=== PATIENT | male | born 1960 | race Caucasian/White ===

== ENCOUNTER 2018-10-13 18:34 | Inpatient (IN) | payer OTHER ==
[2018-10-13 22:36] VITALS: BMI 22.5
--- NOTE | 2018-10-14 00:08 | HP ---
CIWA Score Nausea/Vomitin-No Nausea/No Vomiting Muscle Tremors: 4-Moderate,w/Arms Extend Anxiety: 3 Agitation: 3 Paroxysmal Sweats: 3 (Increased facial moisture) Orientation: 0-Oriented Tacttile Disturbances: 0-None Auditory Disturbances: 0-None Visual Disturbances: 0-None Headache: 0-None Present CIWA-Ar Total Score: 13 - Admission Criteria OASAS Guidelines: Admission for Medically Managed Detox: Requires at least one of the followin. CIWA greater than 12 2. Seizures within the past 24 hours 3. Delirium tremens within the past 24 hours 4. Hallucinations within the past 24 hours 5. Acute intervention needed for co occurring medical disorder 6. Acute intervention needed for co occurring psychiatric disorder 7. Severe withdrawal that cannot be handled at a lower level of care (continued vomiting, continued diarrhea, abnormal vital signs) requiring intravenous medication and/or fluids 8. Patient presents the following: CIWA greater than 12 Admission Criteria Met: Admission criteria met Admission ROS [facility] - [facility] Chief Complaint: Having withdrawal symptoms. Allergies/Adverse Reactions: Allergies Allergy/AdvReac Type Severity Reaction Status Date / Time No Known Allergies Allergy Verified 10/13/18 22:21 History of Present Illness: 58 yo presents w/ alcohol withdrawal symptoms for detox. Has co-occurring opiates, cocaine and Bzo use disorder. Alcohol use began at age 15. State alcohol use is usually every other day but has been binging this last week. Cocaine use began at age 17. Started using Crack daily @ age 30. . Heroin use began at age 50. (Was using Lorelei's before starting heroin). On [facility] MMTP x 3 years. Current Methadone dose is 120 mg PO daily. Last medicated today. Continues to use heroin despite being on MMTP. Uses IV. Denies sharing needles or works. Benzo (Klonopin) use began at age 56. (Was using street Xanax, before starting prescribed Klonopin). Discussed w/ patient that Librium is a benzo and would cover any withdrawals from Klonopin. Patient verbalized an understanding that Klonopin would be held. . Nicotine use began at age 16. Current use 3-4 cigarettes/day. Declines gum because of teeth. Wants patch Denies overdoses. Alcohol blackout. Last 1 week ago. PMHx: Seizures, HTN, Hyperthyroid, BPH, Inguinal hernia, MHHx: Anxiety, panic attacks, depression. Denies thoughts of harming self or others. Patient Name: Fred Mott Date: 1960 Address: [address] [place] [address] Sex: Male Rx Written Rx Dispensed Drug Quantity Days Supply Prescriber Name 09/26/2018 09/27/2018 clonazepam 1 mg tablet 90 30 Allen, Avelina G ([employer]) 08/29/2018 08/31/2018 clonazepam 1 mg tablet 90 30 Allen, Avelina G ([employer]) 08/01/2018 08/01/2018 clonazepam 1 mg tablet 90 30 Allen, Avelina G ([employer]) 06/04/2018 06/04/2018 clonazepam 1 mg tablet 90 30 Butt, Soheila Ventura MD Patient Name: Fred Mott Date: 1960 Address: [address] [place] [address] Sex: Male Rx Written Rx Dispensed Drug Quantity Days Supply Prescriber Name 07/02/2018 07/02/2018 clonazepam 1 mg tablet 90 30 Allen, Avelina G ([employer]) Patient Name: Fred Mott Date: 1960 Address: [address] [place] [address] Sex: Male Rx Written Rx Dispensed Drug Quantity Days Supply Prescriber Name 03/05/2018 03/05/2018 clonazepam 1 mg tablet 90 30 Butt, Soheila Ventura MD 02/05/2018 02/05/2018 clonazepam 1 mg tablet 90 30 Butt, Soheila Ventura MD Search Terms: Fred Mott, 1960 Search Date: 10/14/2018 12:07:29 AM States Searched: [place], [place], [place], [place], [place], [place], [place] The Drug Utilization Report below displays the controlled substance prescriptions, if any, that were dispensed in the indicated state(s). The information displayed on this report is compiled from requests submitted to other states' PMPs, and accurately reflects the information as returned by them. Blank epperson indicate data not provided by other state. This report was requested by: Jeanine Rodriguez | Reference #: [id number] Exam Limitations: No Limitations - Ebola screening Have you traveled outside of the country in the last 21 days: No (N) Have you had contact with anyone from an Ebola affected area: No Have you been sick,other than usual withdrawal symptoms: No (Denies recent exposure to measles) Do you have a fever: No - Review of Systems Constitutional: Diaphoresis (Increased facial moisture), Unintentional Wgt. Loss EENT: reports: Blurred Vision, Dental Problems (In poor shape. No pain. Chews and swallows ok.) Respiratory: reports: No Symptoms reported Cardiac: reports: No Symptoms Reported GI: reports: Constipated (Intermittent) : reports: Other (Difficulty initiating flow) Musculoskeletal: reports: Back Pain (Chronic intermittent dull/achy back pain w / intermittent sciatica. "7". Improves w/ warm shower and relaxing) Integumentary: reports: No Symptoms Reported Neuro: reports: Tremors Endocrine: reports: Increased Thirst Hematology: reports: No Symptoms Reported Psychiatric: reports: Judgement Intact, Orientated x3, Agitated, Anxious, Depressed (Denies thoughts of harming self or others.) Other Systems: Reviewed and Negative Patient History - PPD History Previous Implant?: Yes Documented Results: Negative w/o proof Implanted On Prior R Admission?: No PPD to be Administered?: Yes - Smoking Cessation Smoking history: Current every day smoker Have you smoked in the past 12 months: Yes Aproximately how many cigarettes per day: 4 Hx Chewing Tobacco Use: No Initiated information on smoking cessation: Yes 'Breaking Loose' booklet given: 10/14/18 - Substance & Tx. History Hx Alcohol Use: Yes Hx Substance Use: Yes Substance Use Type: Alcohol, Cocaine, Heroin, Opiates, Tranquilizers Hx Substance Use Treatment: Yes (detox, rehab, Current MMTP) - Substances abused Alcohol Substance route: Oral Frequency: Daily Amount used: Beers 5 -6 40 oz, Vodka 1/2 pint Age of first use: 15 Date of last use: 10/12/18 Heroin Substance route: Injection Frequency: Daily Amount used: 1 bundle Age of first use: 50 Date of last use: 10/12/18 Cocaine Substance route: Smoking Frequency: Daily Amount used: $100 Age of first use: 30 Date of last use: 10/10/18 Admission Physical Exam BHS - Vital Signs Vital Signs: Vital Signs - 24 hr 10/13/18 22:06 Temperature 97.3 F L Pulse Rate 54 L Respiratory 18 Rate Blood Pressure 128/74 - Physical General Appearance: Yes: Nourished, Mild Distress, Tremorous, Sweating ( Increased facial moisture), Anxious HEENTM: Yes: EOMI, Hearing grossly Normal, Normocephalic, Normal Voice, DILEEP ( Pupils = 3 mm), Pharynx Normal Respiratory: Yes: Lungs Clear, Normal Breath Sounds, No Respiratory Distress Neck: Yes: No masses,lesions,Nodules, Supple Breast: Yes: Breast Exam Deferred Cardiology: Yes: Regular Rhythm, Regular Rate, S1, S2, Murmur Abdominal: Yes: Non Tender, Flat, Soft, Increased Bowel Sounds, Hernia ((R) inguinal bulge - small, reducible, non tender) Genitourinary: Yes: Within Normal Limits Back: Yes: Normal Inspection Musculoskeletal: Yes: full range of Motion, Gait Steady Extremities: Yes: Normal Capillary Refill, Normal Range of Motion, Tremors ( Gross tremors w/ arms elevated) Neurological: Yes: inspector wreath II-XII NML intact, Fully Oriented, Alert, Motor Strength 5/5 Integumentary: Yes: Normal Color, Warm, Diaphoresis (Increased facial moisture) , Track Boss (antecubital areas - w/o increased erythema, warmth, or induration ) Lymphatic: Yes: Within Normal Limits - Diagnostic (1) Alcohol dependence with uncomplicated withdrawal Current Visit: Yes Status: Acute (2) Cocaine dependence, uncomplicated Current Visit: Yes Status: Chronic (3) Opioid abuse Current Visit: Yes Status: Chronic (4) Methadone maintenance therapy patient Current Visit: Yes Status: Chronic (5) Murmur, cardiac Current Visit: Yes Status: Acute Comment: Patient unaware of murmur (6) HTN (hypertension) Current Visit: Yes Status: Chronic Qualifiers: Hypertension type: essential hypertension Qualified Code(s): I10 - Essential (primary) hypertension (7) Hyperthyroidism Current Visit: Yes Status: Acute (8) History of BPH Current Visit: Yes Status: Chronic (9) History of seizures Current Visit: No Status: Chronic Comment: Denies recent seizures (10) Nicotine use disorder Current Visit: Yes Status: Chronic Cleared for Admission S - Detox or Rehab [facility] Level of Care: Medically Managed Detox Regimen/Protocol: Librium Claeared for Rehab Admission: Yes Breathalyzer - Breathalyzer Breathalyzer: 0 Urine Drug Screen - Test Device Lot number: [id number] Expiration date: 07/28/20 - Control Is test valid?: Yes - Results Drug screen NEGATIVE: No Urine drug screen results: NIGHAT-Cocaine, FEN-Fentanyl, MOP-Opiates, MTD-Methadone , BZO-Benzodiazepines Inpatient Rehab Admission - Rehab Decision to Admit Inpatient rehab admission?: No
[2018-10-14] MEDS ORDERED: chlordiazePOXIDE HCL 25 MG CAPSULE PO ONE (00:38)
[2018-10-14] MEDS ORDERED: MAGNESIUM CITRATE 300 ML BOTTLE PO PRN (00:38)
[2018-10-14] MEDS ORDERED: BISMUTH SUBSALICYLATE 524 MG/30 ML UD PO PRN (00:38)
[2018-10-14] MEDS ORDERED: chlordiazePOXIDE HCL 10 MG CAPSULE PO PRN (00:38)
[2018-10-14] MEDS ORDERED: MAG HYDROX/AL HYDROX/SIMETH 30 ML UNIT-DOSE CUP PO PRN (00:38)
[2018-10-14] MEDS ORDERED: PROCHLORPERAZINE MALEATE 5 MG TABLET PO PRN (00:38)
[2018-10-14] MEDS ORDERED: IBUPROFEN 400 MG TABLET (FP) PO PRN (00:38)
[2018-10-14] MEDS ORDERED: MENTHOL/PHENOL 1 EACH UD MM PRN (00:38)
[2018-10-14] MEDS ORDERED: MAGNESIUM HYDROX 2400MG/30ML ORAL SUSPENSION 30 ML CUP PO PRN (00:38)
[2018-10-14] MEDS ORDERED: ACETAMINOPHEN 325 MG TABLET (FP) PO PRN (00:38)
[2018-10-14] MEDS: TAMSULOSIN HCL 0.4 MG CAP PO SCH ×2 (01:46→21:32)
[2018-10-14] MEDS: ACETAMINOPHEN 325 MG TABLET (FP) PO PRN (01:46)
[2018-10-14] MEDS: chlordiazePOXIDE HCL 25 MG CAPSULE PO SCH ×3 (06:47→21:32)
[2018-10-14 09:46] LABS: HEMATOCRIT 42.6 % (35.4-49); HEMOGLOBIN 14.3 GM/dL (11.7-16.9); MCH 32.3 pg (25.7-33.7); MCHC 33.5 g/dl (32.0-35.9); MEAN CELL VOLUME 96.4 fl (80-96); MEAN PLT VOLUME 9.7 fl (7.5-11.1); PLATELET COUNT 214 K/MM3 (134-434); RBC 4.42 M/mm3 (4.00-5.60); RDW 14.2 % (11.9-15.9); WHITE BLOOD COUNT 5.7 K/mm3 (4.0-10.0)
[2018-10-14] MEDS ORDERED: LEVOTHYROXINE NA 100 MCG TABLET (FP) PO ONE (10:00)
[2018-10-14] MEDS ORDERED: LEVOTHYROXINE NA 25 MCG TABLET (FP) PO SCH (10:00)
[2018-10-14] MEDS ORDERED: METHADONE HCL 40 MG DISPERSABLE TABLET PO ONE (10:00)
[2018-10-14] MEDS ORDERED: NICOTINE 14 MG/24 HOURS TOPICAL PATCH TD SCH (10:00)
[2018-10-14 10:11] LABS: ALBUMIN 3.2 g/dl (3.4-5.0); BILIRUBIN,TOTAL 0.2 mg/dL (0.2-1); BLOOD UREA NITROGEN 21.4 mg/dL (7-18); CALCIUM 8.6 mg/dL (8.5-10.1); CREATININE 0.7 mg/dL (0.55-1.3); POTASSIUM 4.3 mmol/L (3.5-5.1)
[2018-10-14] MEDS: NICOTINE 7 MG/24 HOURS TOPICAL PATCH TD SCH (10:17)
[2018-10-14] MEDS: PRENATAL VITAMINS W/ FOLIC ACID TABLET (FP) PO SCH (10:17)
[2018-10-14] MEDS: METOPROLOL TARTRATE 25 MG TABLET (FP) PO SCH (11:30)
--- NOTE | 2018-10-14 14:24 | PN ---
[facility] CIWA - CIWA Score Nausea/Vomitin-Mild Nausea/No Vomiting Muscle Tremors: 3 Anxiety: 3 Agitation: 2 Paroxysmal Sweats: 1-Minimal Palms Moist Orientation: 1-Uncertain about Date Tacttile Disturbances: 1-Very Mild Itch/Numbness Auditory Disturbances: 0-None Visual Disturbances: 0-None Headache: 0-None Present CIWA-Ar Total Score: 12 S Progress Note (SOAP) Subjective: received methadone 120 mg today doing well with libium for alcohol detox medication external reviewed that the patient is taking synthroid 0.1 mg po daily for hypothyroid change synthroid from 25 mcg to 100 mcg Objective: 10/14/18 14:27 Vital Signs Temperature 97.9 F 10/14/18 13:18 Pulse Rate 53 L 10/14/18 13:18 Respiratory Rate 16 10/14/18 13:18 Blood Pressure 116/75 10/14/18 13:18 O2 Sat by Pulse Oximetry (%) Laboratory Last Values WBC 5.7 K/mm3 (4.0-10.0) 10/14/18 07:00 RBC 4.42 M/mm3 (4.00-5.60) 10/14/18 07:00 Hgb 14.3 GM/dL (11.7-16.9) 10/14/18 07:00 Hct 42.6 % (35.4-49) 10/14/18 07:00 MCV 96.4 fl (80-96) H 10/14/18 07:00 MCH 32.3 pg (25.7-33.7) 10/14/18 07:00 MCHC 33.5 g/dl (32.0-35.9) 10/14/18 07:00 RDW 14.2 % (11.9-15.9) 10/14/18 07:00 Plt Count 214 K/MM3 (134-434) 10/14/18 07:00 MPV 9.7 fl (7.5-11.1) 10/14/18 07:00 Sodium 140 mmol/L (136-145) 10/14/18 07:00 Potassium 4.3 mmol/L (3.5-5.1) 10/14/18 07:00 Chloride 105 mmol/L (98-107) 10/14/18 07:00 Carbon Dioxide 31 mmol/L (21-32) 10/14/18 07:00 Anion Gap 4 MMOL/L (8-16) L 10/14/18 07:00 BUN 21.4 mg/dL (7-18) H 10/14/18 07:00 Creatinine 0.7 mg/dL (0.55-1.3) 10/14/18 07:00 Est GFR (CKD-EPI)AfAm 120.56 10/14/18 07:00 Est GFR (CKD-EPI)NonAf 104.02 10/14/18 07:00 Random Glucose 77 mg/dL (74-106) 10/14/18 07:00 Calcium 8.6 mg/dL (8.5-10.1) 10/14/18 07:00 Total Bilirubin 0.2 mg/dL (0.2-1) 10/14/18 07:00 AST 6 U/L (15-37) L 10/14/18 07:00 ALT 15 U/L (13-61) 10/14/18 07:00 Alkaline Phosphatase 100 U/L (45-117) 10/14/18 07:00 Total Protein 6.0 g/dl (6.4-8.2) L 10/14/18 07:00 Albumin 3.2 g/dl (3.4-5.0) L 10/14/18 07:00 RPR Titer Nonreactive (NONREACTIVE) 10/14/18 07:00 lab noted Assessment: 10/14/18 14:27 alcohol withdrawal sx Plan: continue alcohol detox
[2018-10-14] MEDS: METHOCARBAMOL 500 MG TABLET PO PRN (17:47)
[2018-10-14] MEDS: THIAMINE HCL 100 MG TABLET (FP) PO SCH (21:32)
[2018-10-15] MEDS: ACETAMINOPHEN 325 MG TABLET (FP) PO PRN (01:37)
[2018-10-15] MEDS: METHADONE HCL 40 MG DISPERSABLE TABLET PO SCH (05:41)
[2018-10-15] MEDS: chlordiazePOXIDE 5 MG CAPSULE PO SCH ×3 (05:41→22:33)
[2018-10-15] MEDS: LEVOTHYROXINE NA 100 MCG TABLET (FP) PO SCH (06:49)
[2018-10-15] MEDS: PRENATAL VITAMINS W/ FOLIC ACID TABLET (FP) PO SCH (10:18)
[2018-10-15] MEDS: METOPROLOL TARTRATE 25 MG TABLET (FP) PO SCH (10:18)
[2018-10-15] MEDS: NICOTINE 7 MG/24 HOURS TOPICAL PATCH TD SCH (12:00)
--- NOTE | 2018-10-15 12:23 | PN ---
[facility] CIWA - CIWA Score Nausea/Vomitin-Mild Nausea/No Vomiting Muscle Tremors: 2 Anxiety: 3 Agitation: 2 Paroxysmal Sweats: 1-Minimal Palms Moist Orientation: 0-Oriented Tacttile Disturbances: 1-Very Mild Itch/Numbness Auditory Disturbances: 0-None Visual Disturbances: 0-None Headache: 0-None Present CIWA-Ar Total Score: 10 S Progress Note (SOAP) Subjective: patient is concerning about chronic right hernia that he wants to have hernia repair surgically after detox patient denies pain denies constipation denies vomiting ambulating on hallway encourage to discuss aftercare with staff Objective: 10/15/18 12:25 Vital Signs Temperature 97.4 F L 10/15/18 09:11 Pulse Rate 60 10/15/18 09:11 Respiratory Rate 18 10/15/18 09:11 Blood Pressure 120/72 10/15/18 09:11 O2 Sat by Pulse Oximetry (%) Laboratory Last Values WBC 5.7 K/mm3 (4.0-10.0) 10/14/18 07:00 RBC 4.42 M/mm3 (4.00-5.60) 10/14/18 07:00 Hgb 14.3 GM/dL (11.7-16.9) 10/14/18 07:00 Hct 42.6 % (35.4-49) 10/14/18 07:00 MCV 96.4 fl (80-96) H 10/14/18 07:00 MCH 32.3 pg (25.7-33.7) 10/14/18 07:00 MCHC 33.5 g/dl (32.0-35.9) 10/14/18 07:00 RDW 14.2 % (11.9-15.9) 10/14/18 07:00 Plt Count 214 K/MM3 (134-434) 10/14/18 07:00 MPV 9.7 fl (7.5-11.1) 10/14/18 07:00 Sodium 140 mmol/L (136-145) 10/14/18 07:00 Potassium 4.3 mmol/L (3.5-5.1) 10/14/18 07:00 Chloride 105 mmol/L (98-107) 10/14/18 07:00 Carbon Dioxide 31 mmol/L (21-32) 10/14/18 07:00 Anion Gap 4 MMOL/L (8-16) L 10/14/18 07:00 BUN 21.4 mg/dL (7-18) H 10/14/18 07:00 Creatinine 0.7 mg/dL (0.55-1.3) 10/14/18 07:00 Est GFR (CKD-EPI)AfAm 120.56 10/14/18 07:00 Est GFR (CKD-EPI)NonAf 104.02 10/14/18 07:00 Random Glucose 77 mg/dL (74-106) 10/14/18 07:00 Calcium 8.6 mg/dL (8.5-10.1) 10/14/18 07:00 Total Bilirubin 0.2 mg/dL (0.2-1) 10/14/18 07:00 AST 6 U/L (15-37) L 10/14/18 07:00 ALT 15 U/L (13-61) 10/14/18 07:00 Alkaline Phosphatase 100 U/L (45-117) 10/14/18 07:00 Total Protein 6.0 g/dl (6.4-8.2) L 10/14/18 07:00 Albumin 3.2 g/dl (3.4-5.0) L 10/14/18 07:00 RPR Titer Nonreactive (NONREACTIVE) 10/14/18 07:00 lab noted Assessment: 10/15/18 12:25 alcohol withdrawal sx Plan: continue alcohol detox
--- NOTE | 2018-10-15 15:24 | EKG ---
Test Reason : Blood Pressure : / mmHG Vent. Rate : 055 BPM Atrial Rate : 055 BPM P-R Int : 154 ms QRS Dur : 096 ms QT Int : 468 ms P-R-T Axes : 060 002 034 degrees QTc Int : 447 ms SINUS BRADYCARDIA POSSIBLE LEFT ATRIAL ENLARGEMENT BORDERLINE ECG NO PREVIOUS ECGS AVAILABLE Confirmed by DULCE MARIA TAYLOR, CARMEN ([id number]) on 10/15/2018 3:23:37 PM Referred By: Dominic Cabrales Confirmed By:CARMEN العراقي MD
[2018-10-15 16:21] LABS: URINE APPEARANCE CLEAR; URINE BILIRUBIN NEGATIVE (NEGATIVE); URINE COLOR YELLOW; URINE GLUCOSE (UA) NEGATIVE (NEGATIVE); URINE KETONE NEGATIVE (NEGATIVE); URINE LEUK ESTERASE NEGATIVE (NEGATIVE); URINE NITRITE NEGATIVE (NEGATIVE); URINE PROTEIN NEGATIVE (NEGATIVE); URINE UROBILINOGEN 0.2 mg/dL (0.2-1.0)
[2018-10-15] MEDS: TAMSULOSIN HCL 0.4 MG CAP PO SCH (22:33)
[2018-10-15] MEDS: THIAMINE HCL 100 MG TABLET (FP) PO SCH (22:34)
[2018-10-15] MEDS: MELATONIN 5 MG TABLETS PO PRN (22:34)
[2018-10-16] MEDS ORDERED: chlordiazePOXIDE HCL 10 MG CAPSULE PO PRN
[2018-10-16] MEDS: METHADONE HCL 40 MG DISPERSABLE TABLET PO SCH (05:26)
[2018-10-16] MEDS: chlordiazePOXIDE HCL 10 MG CAPSULE PO SCH ×3 (05:26→20:28)
[2018-10-16] MEDS: LEVOTHYROXINE NA 100 MCG TABLET (FP) PO SCH (06:58)
[2018-10-16] MEDS: METOPROLOL TARTRATE 25 MG TABLET (FP) PO SCH (10:12)
[2018-10-16] MEDS: NICOTINE 7 MG/24 HOURS TOPICAL PATCH TD SCH (10:12)
[2018-10-16] MEDS: PRENATAL VITAMINS W/ FOLIC ACID TABLET (FP) PO SCH (10:12)
--- NOTE | 2018-10-16 15:28 | PN ---
S CIWA - CIWA Score Nausea/Vomitin-Mild Nausea/No Vomiting Muscle Tremors: 1-None Visible, but [place] Anxiety: 1-Mildly Anxious Agitation: 0-Normal Activity Paroxysmal Sweats: 2 Orientation: 0-Oriented Tacttile Disturbances: 1-Very Mild Itch/Numbness Auditory Disturbances: 0-None Visual Disturbances: 0-None Headache: 0-None Present CIWA-Ar Total Score: 6 BHS Progress Note (SOAP) Subjective: interupted sleep, sweats-mild Objective: 10/16/18 15:26 Vital Signs Temperature 96.1 F L 10/16/18 13:53 Pulse Rate 72 10/16/18 13:53 Respiratory Rate 18 10/16/18 13:53 Blood Pressure 111/68 10/16/18 13:53 O2 Sat by Pulse Oximetry (%) Laboratory Tests 10/14/18 10/14/18 10/14/18 07:00 07:00 07:00 WBC 5.7 RBC 4.42 Hgb 14.3 Hct 42.6 MCV 96.4 H MCH 32.3 MCHC 33.5 RDW 14.2 Plt Count 214 MPV 9.7 Sodium 140 Potassium 4.3 Chloride 105 Carbon Dioxide 31 Anion Gap 4 L BUN 21.4 H Creatinine 0.7 Est GFR (CKD-EPI)AfAm 120.56 Est GFR (CKD-EPI)NonAf 104.02 Random Glucose 77 Calcium 8.6 Total Bilirubin 0.2 AST 6 L ALT 15 Alkaline Phosphatase 100 Total Protein 6.0 L Albumin 3.2 L Urine Color Urine Appearance Urine pH Ur Specific [place] Urine Protein Urine Glucose (UA) Urine Ketones Urine Blood Urine Nitrite Urine Bilirubin Urine Urobilinogen Ur Leukocyte Esterase RPR Titer TB (QFT) Incubation TB Test (QFT) Nil 0.07 TB Test (QFT) Mitogen >10.00 TB Test (QFT) Antigen 0.11 TB Test (QFT) Negative TB Positive Criteria 10/14/18 10/15/18 07:00 14:20 WBC RBC Hgb Hct MCV MCH MCHC RDW Plt Count MPV Sodium Potassium Chloride Carbon Dioxide Anion Gap BUN Creatinine Est GFR (CKD-EPI)AfAm Est GFR (CKD-EPI)NonAf Random Glucose Calcium Total Bilirubin AST ALT Alkaline Phosphatase Total Protein Albumin Urine Color Yellow Urine Appearance Clear Urine pH 7.0 Ur Specific [place] 1.012 Urine Protein Negative Urine Glucose (UA) Negative Urine Ketones Negative Urine Blood Negative Urine Nitrite Negative Urine Bilirubin Negative Urine Urobilinogen 0.2 Ur Leukocyte Esterase Negative RPR Titer Nonreactive TB (QFT) Incubation TB Test (QFT) Nil TB Test (QFT) Mitogen TB Test (QFT) Antigen TB Test (QFT) TB Positive Criteria pt in nad lying in bed . Assessment: 10/16/18 15:27 withdrawal sx's Plan: cont. detox increase fluids
--- NOTE | 2018-10-16 15:45 | PN ---
S Progress Note Note: will hold d/c -pt otp in [facility] close early ion friday.
[2018-10-16] MEDS: ACETAMINOPHEN 325 MG TABLET (FP) PO PRN (16:45)
[2018-10-16] MEDS: THIAMINE HCL 100 MG TABLET (FP) PO SCH (21:41)
[2018-10-16] MEDS: TAMSULOSIN HCL 0.4 MG CAP PO SCH (21:41)
[2018-10-17] MEDS ORDERED: chlordiazePOXIDE HCL 10 MG CAPSULE PO ONE (05:00)
[2018-10-17] MEDS: METHADONE HCL 40 MG DISPERSABLE TABLET PO SCH (07:05)
[2018-10-17] MEDS: LEVOTHYROXINE NA 100 MCG TABLET (FP) PO SCH (07:06)
[2018-10-17] MEDS: METOPROLOL TARTRATE 25 MG TABLET (FP) PO SCH (10:29)
[2018-10-17] MEDS: PRENATAL VITAMINS W/ FOLIC ACID TABLET (FP) PO SCH (10:29)
[2018-10-17] MEDS: NICOTINE 7 MG/24 HOURS TOPICAL PATCH TD SCH (10:29)
[2018-10-17] MEDS: FLUTICASONE PROP 0.05% 16 GM NASAL SPRAY NS SCH ×2 (15:03→22:39)
--- NOTE | 2018-10-17 18:49 | PN ---
S CIWA - CIWA Score Nausea/Vomitin-No Nausea/No Vomiting Muscle Tremors: None Anxiety: 2 Agitation: 1-Slight > Activity Paroxysmal Sweats: No Perspiration Orientation: 0-Oriented Tacttile Disturbances: 0-None Auditory Disturbances: 0-None Visual Disturbances: 1-Very Mild Sensitivity Headache: 0-None Present CIWA-Ar Total Score: 4 BHS Progress Note (SOAP) Subjective: Interrupted Sleep, Anxious. Objective: PATIENT A & O X 3, OBSERVED AMBULATING ON UNIT UNASSISTED. IN NO ACUTE DISTRESS. 10/17/18 18:46 Vital Signs Temperature 97.3 F L 10/17/18 18:31 Pulse Rate 58 L 10/17/18 18:31 Respiratory Rate 18 10/17/18 18:31 Blood Pressure 118/69 10/17/18 18:31 O2 Sat by Pulse Oximetry (%) Laboratory Tests 10/14/18 10/14/18 10/14/18 07:00 07:00 07:00 WBC 5.7 RBC 4.42 Hgb 14.3 Hct 42.6 MCV 96.4 H MCH 32.3 MCHC 33.5 RDW 14.2 Plt Count 214 MPV 9.7 Sodium 140 Potassium 4.3 Chloride 105 Carbon Dioxide 31 Anion Gap 4 L BUN 21.4 H Creatinine 0.7 Est GFR (CKD-EPI)AfAm 120.56 Est GFR (CKD-EPI)NonAf 104.02 Random Glucose 77 Calcium 8.6 Total Bilirubin 0.2 AST 6 L ALT 15 Alkaline Phosphatase 100 Total Protein 6.0 L Albumin 3.2 L Urine Color Urine Appearance Urine pH Ur Specific [place] Urine Protein Urine Glucose (UA) Urine Ketones Urine Blood Urine Nitrite Urine Bilirubin Urine Urobilinogen Ur Leukocyte Esterase RPR Titer TB (QFT) Incubation TB Test (QFT) Nil 0.07 TB Test (QFT) Mitogen >10.00 TB Test (QFT) Antigen 0.11 TB Test (QFT) Negative TB Positive Criteria 10/14/18 10/15/18 07:00 14:20 WBC RBC Hgb Hct MCV MCH MCHC RDW Plt Count MPV Sodium Potassium Chloride Carbon Dioxide Anion Gap BUN Creatinine Est GFR (CKD-EPI)AfAm Est GFR (CKD-EPI)NonAf Random Glucose Calcium Total Bilirubin AST ALT Alkaline Phosphatase Total Protein Albumin Urine Color Yellow Urine Appearance Clear Urine pH 7.0 Ur Specific [place] 1.012 Urine Protein Negative Urine Glucose (UA) Negative Urine Ketones Negative Urine Blood Negative Urine Nitrite Negative Urine Bilirubin Negative Urine Urobilinogen 0.2 Ur Leukocyte Esterase Negative RPR Titer Nonreactive TB (QFT) Incubation TB Test (QFT) Nil TB Test (QFT) Mitogen TB Test (QFT) Antigen TB Test (QFT) TB Positive Criteria LABS NOTED. Assessment: 10/17/18 18:47 WITHDRAWAL SYMPTOMS. Plan: CONTINUE DETOX. INCREASE DAILY PO WATER INTAKE. DUE TO DISTANCE TO PATIENT'S M.M.T.P. PROGRAM ([facility], [place]), PATIENT TO REMAIN ON DETOX UNIT UNTIL DISCHARGE TOMORROW AM SO THAT PATIENT MAY RETURN TO M.M.T.P. PROGRAM ON 10/19/2018.
[2018-10-17] MEDS: TAMSULOSIN HCL 0.4 MG CAP PO SCH (22:39)
[2018-10-17] MEDS: THIAMINE HCL 100 MG TABLET (FP) PO SCH (22:39)
[2018-10-17] MEDS: MELATONIN 5 MG TABLETS PO PRN (22:40)
[2018-10-17] MEDS: METHOCARBAMOL 500 MG TABLET PO PRN (22:41)
[2018-10-18] MEDS: METHADONE HCL 40 MG DISPERSABLE TABLET PO SCH (05:55)
[2018-10-18] MEDS: LEVOTHYROXINE NA 100 MCG TABLET (FP) PO SCH (07:20)
[2018-10-18 09:18] VITALS: BP 129/80; PULSE 57; TEMP 97.4
[2018-10-18] MEDS: METOPROLOL TARTRATE 25 MG TABLET (FP) PO SCH (09:30)
[2018-10-18] MEDS: PRENATAL VITAMINS W/ FOLIC ACID TABLET (FP) PO SCH (09:30)
[2018-10-18] MEDS: FLUTICASONE PROP 0.05% 16 GM NASAL SPRAY NS SCH (09:30)
[2018-10-18] MEDS: NICOTINE 7 MG/24 HOURS TOPICAL PATCH TD SCH (09:31)
--- NOTE | 2018-10-18 15:17 | DS ---
[facility] Detox Discharge Summary Admission Date: 10/14/18 Discharge Date: 10/18/18 - History Present History: Alcohol Dependence Additional Comments: 58 years old male admitted on 10/13/18 for acute alcohol withdrawal sx management no complicatin throughout the detox stay alert oriented x3 patient prefers to return to methadone program 120 mg po daily no chest pain no shortness of breath no nausea no constipation Pertinent Past History: hypertension hypothyroid - Physical Exam Results Vital Signs: Vital Signs Temperature 97.4 F L 10/18/18 09:17 Pulse Rate 57 L 10/18/18 09:17 Respiratory Rate 18 10/18/18 09:17 Blood Pressure 129/80 10/18/18 09:17 O2 Sat by Pulse Oximetry (%) Pertinent Admission Physical Exam Findings: alcohol withdrawal sx Vital Signs Temperature 97.4 F L 10/18/18 09:17 Pulse Rate 57 L 10/18/18 09:17 Respiratory Rate 18 10/18/18 09:17 Blood Pressure 129/80 10/18/18 09:17 O2 Sat by Pulse Oximetry (%) Laboratory Last Values WBC 5.7 K/mm3 (4.0-10.0) 10/14/18 07:00 RBC 4.42 M/mm3 (4.00-5.60) 10/14/18 07:00 Hgb 14.3 GM/dL (11.7-16.9) 10/14/18 07:00 Hct 42.6 % (35.4-49) 10/14/18 07:00 MCV 96.4 fl (80-96) H 10/14/18 07:00 MCH 32.3 pg (25.7-33.7) 10/14/18 07:00 MCHC 33.5 g/dl (32.0-35.9) 10/14/18 07:00 RDW 14.2 % (11.9-15.9) 10/14/18 07:00 Plt Count 214 K/MM3 (134-434) 10/14/18 07:00 MPV 9.7 fl (7.5-11.1) 10/14/18 07:00 Sodium 140 mmol/L (136-145) 10/14/18 07:00 Potassium 4.3 mmol/L (3.5-5.1) 10/14/18 07:00 Chloride 105 mmol/L (98-107) 10/14/18 07:00 Carbon Dioxide 31 mmol/L (21-32) 10/14/18 07:00 Anion Gap 4 MMOL/L (8-16) L 10/14/18 07:00 BUN 21.4 mg/dL (7-18) H 10/14/18 07:00 Creatinine 0.7 mg/dL (0.55-1.3) 10/14/18 07:00 Est GFR (CKD-EPI)AfAm 120.56 10/14/18 07:00 Est GFR (CKD-EPI)NonAf 104.02 10/14/18 07:00 Random Glucose 77 mg/dL (74-106) 10/14/18 07:00 Calcium 8.6 mg/dL (8.5-10.1) 10/14/18 07:00 Total Bilirubin 0.2 mg/dL (0.2-1) 10/14/18 07:00 AST 6 U/L (15-37) L 10/14/18 07:00 ALT 15 U/L (13-61) 10/14/18 07:00 Alkaline Phosphatase 100 U/L (45-117) 10/14/18 07:00 Total Protein 6.0 g/dl (6.4-8.2) L 10/14/18 07:00 Albumin 3.2 g/dl (3.4-5.0) L 10/14/18 07:00 Urine Color Yellow 10/15/18 14:20 Urine Appearance Clear 10/15/18 14:20 Urine pH 7.0 (5.0-8.0) 10/15/18 14:20 Ur Specific [place] 1.012 (1.010-1.035) 10/15/18 14:20 lab notedUrine Protein Negative (NEGATIVE) 10/15/18 14:20 Urine Glucose (UA) Negative (NEGATIVE) 10/15/18 14:20 Urine Ketones Negative (NEGATIVE) 10/15/18 14:20 Urine Blood Negative (NEGATIVE) 10/15/18 14:20 Urine Nitrite Negative (NEGATIVE) 10/15/18 14:20 Urine Bilirubin Negative (NEGATIVE) 10/15/18 14:20 Urine Urobilinogen 0.2 mg/dL (0.2-1.0) 10/15/18 14:20 Ur Leukocyte Esterase Negative (NEGATIVE) 10/15/18 14:20 RPR Titer Nonreactive (NONREACTIVE) 10/14/18 07:00 TB (QFT) Incubation (.) 10/14/18 07:00 TB Test (QFT) Nil 0.07 IU/mL (.) 10/14/18 07:00 TB Test (QFT) Mitogen >10.00 IU/mL (.) 10/14/18 07:00 TB Test (QFT) Antigen 0.11 IU/mL (.) 10/14/18 07:00 TB Test (QFT) Negative (Negative) 10/14/18 07:00 TB Positive Criteria (.) 10/14/18 07:00 lab noted - Treatment Hospital Course: Detox Protocol Followed, Detoxed Safely, Responded well, Discharged Condition Good, Rehab Referral Accepted Patient has Accepted a Rehab Referral to: methadone maintenance program - Medication Discharge Medications: Ambulatory Orders Levothyroxine [Synthroid -] 0.1 mg PO DAILY 10/13/18 clonazePAM [Klonopin -] 1 mg PO DAILY 10/13/18 Levothyroxine [Synthroid -] 100 mcg PO DAILY@0700 #30 tablet 10/16/18 Metoprolol Tartrate [Lopressor -] 25 mg PO DAILY #30 tablet 10/16/18 Tamsulosin HCl [Flomax -] 0.4 mg PO DAILY #30 cap.er.24h 10/16/18 - Diagnosis (1) Hypothyroid Status: Chronic Qualifiers: Hypothyroidism type: unspecified Qualified Code(s): E03.9 - Hypothyroidism , unspecified (2) Methadone maintenance therapy patient Status: Chronic (3) HTN (hypertension) Status: Chronic Qualifiers: Hypertension type: essential hypertension Qualified Code(s): I10 - Essential (primary) hypertension (4) Nicotine use disorder Status: Acute - AMA Did Patient Leave Against Medical Advice: No
== END 2018-10-18 09:30 | disposition home or self-care (01) | DRG 773 ==
LOC: YASAS 18:34 → Y3N 10-14 00:56
PROVIDERS: ADMIT Surgery; ATTEND Surgery
PROC: HZ2ZZZZ Detoxification Services for Substance Abuse Treatment (ICD-10-PCS; principal; 2018-10-14)
DX: F10.230 Alcohol dependence with withdrawal, uncomplicated (principal); F11.20 Opioid dependence, uncomplicated; F14.20 Cocaine dependence, uncomplicated; F17.210 Nicotine dependence, cigarettes, uncomplicated; I10 Essential (primary) hypertension; E03.9 Hypothyroidism, unspecified; R01.1 Cardiac murmur, unspecified; N40.0 Benign prostatic hyperplasia without lower urinary tract symptoms; Z86.69 Personal history of other diseases of the nervous system and sense organs
CPT/HCPCS: 36415; 80053; 81003; 85027; 86480; 86593; 93005; 93010

== ENCOUNTER 2019-03-02 15:17 | Inpatient (IN) | payer OTHER ==
[2019-03-02 17:12] VITALS: BMI 22.5
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
--- NOTE | 2019-03-02 19:39 | PN ---
"Teaching Attending Note Name of Resident: Elena Adame ATTENDING PHYSICIAN STATEMENT I saw and evaluated the patient. I reviewed the resident's note and discussed the case with the resident. I agree with the resident's findings and plan as documented. SUBJECTIVE: pt here requesting detox from etoh and benzo use , claims 6-7 x 40 oz cans daily and overuse of his rx meds , states saw prescriber today and will no longer be receiving rx meds. PMHx: spinal stenosis, dermatitis, HTN, Hyperthyroid, BPH, inguinal hernia, MMTP PSYCH Hx: bipolar, ADHD PSH: none OBJECTIVE: wnwd , left knee ecchymosis , reports jumping turnstile and hitting knee . Vital Signs - 24 hr 03/02/19 16:57 Temperature 97.7 F Pulse Rate 70 Respiratory 18 Rate Blood Pressure 148/92 Prescription Monitoring Program Registry Welcome Leyla Poole Update Personal Info RESIDENT CARE SUPERVISOR FAQ RESIDENT CARE SUPERVISOR Search Results Help RESIDENT CARE SUPERVISOR Help Patient Search Multi-Patient Search Reports Drug Listing Designation My MONI Numbers Data Detail Level: Printer-Friendly View Extended View Confidential Drug Utilization Report Search Terms: fred arguello, 1960 Search Date: 03/02/2019 07:40:35 PM The Drug Utilization Report below displays all of the controlled substance prescriptions, if any, that your patient has filled in the last twelve months. The information displayed on this report is compiled from pharmacy submissions to the Department, and accurately reflects the information as submitted by the pharmacies. This report was requested by: Leyla Poole | Reference #: [id number] Others' Prescriptions Patient Name: Fred Arguello Date: 1960 Address: [address] [place] [address] Sex: Male Rx Written Rx Dispensed Drug Quantity Days Supply Prescriber Name 02/13/2019 02/16/2019 clonazepam 1 mg tablet 90 30 Avelina Villa (WAREHOUSE ORDER PULLER) 12/19/2018 01/17/2019 clonazepam 1 mg tablet 90 30 Avelina Villa (WAREHOUSE ORDER PULLER) 12/19/2018 01/10/2019 dextroamp-amphetam 7.5 mg tab 30 30 Avelina Villa (WAREHOUSE ORDER PULLER) 12/05/2018 12/07/2018 dextroamp-amphetam 7.5 mg tab 30 30 Avelina Villa (WAREHOUSE ORDER PULLER) 07/02/2018 07/02/2018 clonazepam 1 mg tablet 90 30 Allen, Avelina G (WAREHOUSE ORDER PULLER) Patient Name: Fred Arguello Date: 1960 Address: [address] [place] [id number] Sex: Male Rx Written Rx Dispensed Drug Quantity Days Supply Prescriber Name 11/21/2018 11/25/2018 dextroamp-amphetam 7.5 mg tab 15 15 Allen, Avelina G (WAREHOUSE ORDER PULLER) 11/21/2018 11/22/2018 clonazepam 1 mg tablet 90 30 Allen, Avelina G (WAREHOUSE ORDER PULLER) 10/24/2018 10/24/2018 clonazepam 1 mg tablet 90 30 Allen, Avelina G (WAREHOUSE ORDER PULLER) 09/26/2018 09/27/2018 clonazepam 1 mg tablet 90 30 Allen, Avelina G (WAREHOUSE ORDER PULLER) 08/29/2018 08/31/2018 clonazepam 1 mg tablet 90 30 Allen, Avelina G (WAREHOUSE ORDER PULLER) 08/01/2018 08/01/2018 clonazepam 1 mg tablet 90 30 Allen, Avelina G (WAREHOUSE ORDER PULLER) 06/04/2018 06/04/2018 clonazepam 1 mg tablet 90 30 ButtSoheila MD Patient Name: Fred Arguello Date: 1960 Address: [address] [place] [id number] Sex: Male Rx Written Rx Dispensed Drug Quantity Days Supply Prescriber Name 03/05/2018 03/05/2018 clonazepam 1 mg tablet 90 30 ButtSoheila MD ASSESSMENT AND PLAN: AUD / Sedative abuse - Valium detox opioid dependence on agonist therapy"
[2019-03-02] MEDS ORDERED: MAG HYDROX/AL HYDROX/SIMETH 30 ML UNIT-DOSE CUP PO PRN (19:50)
[2019-03-02] MEDS ORDERED: ACETAMINOPHEN 325 MG TABLET (FP) PO PRN ×2 (19:50)
[2019-03-02] MEDS ORDERED: METHOCARBAMOL 500 MG TABLET PO PRN (19:50)
[2019-03-02] MEDS ORDERED: MAGNESIUM CITRATE 300 ML BOTTLE PO PRN (19:50)
[2019-03-02] MEDS ORDERED: hydrOXYzine PAMOATE 25 MG CAPSULE (FP) PO PRN (19:50)
[2019-03-02] MEDS ORDERED: IBUPROFEN 400 MG TABLET (FP) PO PRN (19:50)
[2019-03-02] MEDS ORDERED: MENTHOL/PHENOL 1 EACH UD MM PRN (19:50)
[2019-03-02] MEDS ORDERED: MAGNESIUM HYDROX 2400MG/30ML ORAL SUSPENSION 30 ML CUP PO PRN (19:50)
[2019-03-02] MEDS: diazePAM 5 MG TABLET PO SCH (21:01)
[2019-03-02] MEDS: MELATONIN 5 MG TABLETS PO PRN (21:01)
[2019-03-02] MEDS: THIAMINE HCL 100 MG TABLET (FP) PO SCH (21:01)
[2019-03-03] MEDS: diazePAM 5 MG TABLET PO SCH ×3 (07:21→22:21)
[2019-03-03] MEDS ORDERED: METHADONE HCL 10 MG TABLET PO ONE (08:20)
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
[2019-03-03] MEDS: diazePAM 5 MG TABLET PO PRN ×2 (08:51→16:55)
[2019-03-03] MEDS ORDERED: METHADONE 120 MG, METHADONE 10 MG PO ONE (09:00)
[2019-03-03] MEDS ORDERED: METHADONE HCL 10 MG TABLET ONE (09:22)
[2019-03-03] MEDS ORDERED: METHADONE HCL 40 MG DISPERSABLE TABLET ONE (09:22)
--- NOTE | 2019-03-03 09:31 | PN ---
S CIWA - CIWA Score Nausea/Vomitin-Mild Nausea/No Vomiting Muscle Tremors: 2 Anxiety: 3 Agitation: 3 Paroxysmal Sweats: No Perspiration Orientation: 0-Oriented Tacttile Disturbances: 1-Very Mild Itch/Numbness Auditory Disturbances: 0-None Visual Disturbances: 0-None Headache: 2-Mild CIWA-Ar Total Score: 12 BHS Progress Note (SOAP) Subjective: alert,irritable,anxious,interrupted sleep,tremor,pain in the body Objective: 03/03/19 09:30 Vital Signs Temperature 98.4 F 03/03/19 09:15 Pulse Rate 73 03/03/19 09:15 Respiratory Rate 18 03/03/19 09:15 Blood Pressure 137/84 03/03/19 09:15 O2 Sat by Pulse Oximetry (%) Assessment: 03/03/19 09:30 withdrawal symptom Plan: continue detox valium regimen,continue methadone maintenance 130 mgs/day
[2019-03-03] MEDS: CITALOPRAM HYDROBROMIDE 20 MG TABLET (FP) PO SCH (10:18)
[2019-03-03] MEDS: PRENATAL VITAMINS W/ FOLIC ACID TABLET (FP) PO SCH (10:18)
[2019-03-03] MEDS: NICOTINE 14 MG/24 HOURS TOPICAL PATCH TD SCH (10:22)
[2019-03-03 10:32] LABS: HEMATOCRIT 45.8 % (35.4-49); MCH 31.7 pg (25.7-33.7); MCHC 32.8 g/dl (32.0-35.9); MEAN CELL VOLUME 96.7 fl (80-96); MEAN PLT VOLUME 9.3 fl (7.5-11.1); PLATELET COUNT 332 K/MM3 (134-434); RBC 4.74 M/mm3 (4.00-5.60); RDW 14.9 % (11.9-15.9); WHITE BLOOD COUNT 7.8 K/mm3 (4.0-10.0)
[2019-03-03] MEDS ORDERED: LEVOTHYROXINE NA 100 MCG TABLET (FP) PO ONE (10:44)
[2019-03-03 10:49] LABS: ALBUMIN 3.4 g/dl (3.4-5.0); BILIRUBIN,TOTAL 0.2 mg/dL (0.2-1); BLOOD UREA NITROGEN 17.2 mg/dL (7-18); CALCIUM 9.1 mg/dL (8.5-10.1); CREATININE 0.7 mg/dL (0.55-1.3); POTASSIUM 4.7 mmol/L (3.5-5.1); TOT PROT 6.9 g/dl (6.4-8.2)
[2019-03-03] MEDS: THIAMINE HCL 100 MG TABLET (FP) PO SCH (22:21)
[2019-03-03] MEDS: TAMSULOSIN HCL 0.4 MG CAP PO SCH (22:21)
[2019-03-04] MEDS: diazePAM 5 MG TABLET PO PRN ×2 (03:02→10:18)
[2019-03-04] MEDS ORDERED: METHADONE HCL 40 MG DISPERSABLE TABLET ONE (04:13)
[2019-03-04] MEDS ORDERED: METHADONE HCL 10 MG TABLET ONE (04:13)
[2019-03-04] MEDS: METHADONE 120 MG, METHADONE 10 MG PO SCH (05:43)
[2019-03-04] MEDS: diazePAM 5 MG TABLET PO SCH ×2 (05:44→17:09)
[2019-03-04] MEDS ORDERED: METHADONE HCL 40 MG DISPERSABLE TABLET PO SCH (06:00)
[2019-03-04] MEDS: LEVOTHYROXINE NA 100 MCG TABLET (FP) PO SCH (07:42)
[2019-03-04] MEDS ORDERED: hydrOXYzine PAMOATE 50 MG CAPSULE (FP) PO PRN (09:15)
--- NOTE | 2019-03-04 10:04 | PN ---
S CIWA - CIWA Score Nausea/Vomitin-Mild Nausea/No Vomiting Muscle Tremors: 2 Anxiety: 2 Agitation: 2 Paroxysmal Sweats: No Perspiration Orientation: 0-Oriented Tacttile Disturbances: 1-Very Mild Itch/Numbness Auditory Disturbances: 0-None Visual Disturbances: 0-None Headache: 1-Very Mild CIWA-Ar Total Score: 9 BHS Progress Note (SOAP) Subjective: alert,irritable,anxious,interrupted sleep,pain in the body Objective: 03/04/19 10:03 Vital Signs Temperature 97.8 F 03/04/19 09:31 Pulse Rate 70 03/04/19 09:31 Respiratory Rate 18 03/04/19 09:31 Blood Pressure 116/74 03/04/19 09:31 O2 Sat by Pulse Oximetry (%) 03/04/19 10:03 Vital Signs Temperature 97.8 F 03/04/19 09:31 Pulse Rate 70 03/04/19 09:31 Respiratory Rate 18 03/04/19 09:31 Blood Pressure 116/74 03/04/19 09:31 O2 Sat by Pulse Oximetry (%) Laboratory Last Values WBC 7.8 K/mm3 (4.0-10.0) 03/03/19 08:00 RBC 4.74 M/mm3 (4.00-5.60) 03/03/19 08:00 Hgb 15.0 GM/dL (11.7-16.9) 03/03/19 08:00 Hct 45.8 % (35.4-49) 03/03/19 08:00 MCV 96.7 fl (80-96) H 03/03/19 08:00 MCH 31.7 pg (25.7-33.7) 03/03/19 08:00 MCHC 32.8 g/dl (32.0-35.9) 03/03/19 08:00 RDW 14.9 % (11.9-15.9) 03/03/19 08:00 Plt Count 332 K/MM3 (134-434) D 03/03/19 08:00 MPV 9.3 fl (7.5-11.1) 03/03/19 08:00 Sodium 143 mmol/L (136-145) 03/03/19 08:00 Potassium 4.7 mmol/L (3.5-5.1) 03/03/19 08:00 Chloride 106 mmol/L (98-107) 03/03/19 08:00 Carbon Dioxide 31 mmol/L (21-32) 03/03/19 08:00 Anion Gap 6 MMOL/L (8-16) L 03/03/19 08:00 BUN 17.2 mg/dL (7-18) 03/03/19 08:00 Creatinine 0.7 mg/dL (0.55-1.3) 03/03/19 08:00 Est GFR (CKD-EPI)AfAm 120.56 03/03/19 08:00 Est GFR (CKD-EPI)NonAf 104.02 03/03/19 08:00 Random Glucose 87 mg/dL (74-106) 03/03/19 08:00 Calcium 9.1 mg/dL (8.5-10.1) 03/03/19 08:00 Total Bilirubin 0.2 mg/dL (0.2-1) 03/03/19 08:00 AST 9 U/L (15-37) L 03/03/19 08:00 ALT 20 U/L (13-61) 03/03/19 08:00 Alkaline Phosphatase 125 U/L (45-117) H 03/03/19 08:00 Total Protein 6.9 g/dl (6.4-8.2) 03/03/19 08:00 Albumin 3.4 g/dl (3.4-5.0) 03/03/19 08:00 RPR Titer Nonreactive (NONREACTIVE) 03/03/19 08:00 Assessment: 03/04/19 10:04 withdrawal symptom Plan: continue detox valium regimen,discharge in am
[2019-03-04] MEDS: PRENATAL VITAMINS W/ FOLIC ACID TABLET (FP) PO SCH (10:18)
[2019-03-04] MEDS: NICOTINE 14 MG/24 HOURS TOPICAL PATCH TD SCH (10:18)
[2019-03-04] MEDS: CITALOPRAM HYDROBROMIDE 20 MG TABLET (FP) PO SCH (10:18)
[2019-03-04] MEDS: BISMUTH SUBSALICYLATE 524 MG/30 ML UD PO PRN ×2 (13:13→15:51)
[2019-03-04] MEDS: MELATONIN 5 MG TABLETS PO PRN (22:37)
[2019-03-04] MEDS: TAMSULOSIN HCL 0.4 MG CAP PO SCH (22:37)
[2019-03-04] MEDS: THIAMINE HCL 100 MG TABLET (FP) PO SCH (22:37)
[2019-03-05] MEDS ORDERED: METHADONE HCL 10 MG TABLET ONE (03:08)
[2019-03-05] MEDS ORDERED: METHADONE HCL 40 MG DISPERSABLE TABLET ONE (03:09)
[2019-03-05] MEDS: diazePAM 5 MG TABLET PO PRN (03:40)
[2019-03-05] MEDS: METHADONE 120 MG, METHADONE 10 MG PO SCH (05:38)
[2019-03-05] MEDS ORDERED: diazePAM 5 MG TABLET PO ONE (06:00)
[2019-03-05] MEDS: LEVOTHYROXINE NA 100 MCG TABLET (FP) PO SCH (06:36)
--- NOTE | 2019-03-05 08:16 | DS ---
[facility] Detox Discharge Summary Admission Date: 03/02/19 Discharge Date: 03/05/19 - History Present History: Alcohol Dependence, Cocaine Dependence, Sedative Dependence, MMTP - Physical Exam Results Vital Signs: Vital Signs Temperature 97.7 F 03/05/19 06:03 Pulse Rate 65 03/05/19 06:03 Respiratory Rate 18 03/05/19 06:03 Blood Pressure 111/60 03/05/19 06:03 O2 Sat by Pulse Oximetry (%) Pertinent Admission Physical Exam Findings: pt arrived in withdrawals Vital Signs Temperature 97.7 F 03/05/19 06:03 Pulse Rate 65 03/05/19 06:03 Respiratory Rate 18 03/05/19 06:03 Blood Pressure 111/60 03/05/19 06:03 O2 Sat by Pulse Oximetry (%) Laboratory Tests 03/03/19 03/03/19 03/03/19 08:00 08:00 08:00 WBC 7.8 RBC 4.74 Hgb 15.0 Hct 45.8 MCV 96.7 H MCH 31.7 MCHC 32.8 RDW 14.9 Plt Count 332 D MPV 9.3 Sodium 143 Potassium 4.7 Chloride 106 Carbon Dioxide 31 Anion Gap 6 L BUN 17.2 Creatinine 0.7 Est GFR (CKD-EPI)AfAm 120.56 Est GFR (CKD-EPI)NonAf 104.02 Random Glucose 87 Calcium 9.1 Total Bilirubin 0.2 AST 9 L ALT 20 Alkaline Phosphatase 125 H Total Protein 6.9 Albumin 3.4 RPR Titer Nonreactive aaox3 ambulating no acute distress no s/s of withdrawals - Treatment Hospital Course: Detox Protocol Followed, Detoxed Safely, Responded well, Discharged Condition Good, Rehab Referral Accepted Patient has Accepted a Rehab Referral to: referred to [facility] - Medication Discharge Medications: Ambulatory Orders Levothyroxine [Synthroid -] 100 mcg PO DAILY@0700 #30 tablet 10/16/18 Tamsulosin HCl [Flomax -] 0.4 mg PO DAILY #30 cap.er.24h 10/16/18 Citalopram Hydrobromide [Celexa -] 40 mg PO DAILY 03/02/19 Ibuprofen [Motrin -] 600 mg PO TID 03/02/19 Metoprolol Succinate [Toprol Xl] 50 mg PO DAILY 03/02/19 Multivitamins [Tab-A-Vit -] 1 tab PO DAILY 03/02/19 - Diagnosis (1) Sedative hypnotic or anxiolytic dependence Current Visit: Yes Status: Chronic (2) Substance-induced anxiety disorder Current Visit: Yes Status: Acute (3) Substance-induced sleep disorder Current Visit: Yes Status: Acute (4) Anxiety disorder Current Visit: Yes Status: Chronic (5) Opioid dependence on agonist therapy Current Visit: Yes Status: Chronic (6) Alcohol dependence with uncomplicated withdrawal Current Visit: Yes Status: Chronic (7) Cocaine dependence, uncomplicated Current Visit: Yes Status: Chronic (8) Hyperthyroidism Current Visit: No Status: Acute (9) Murmur, cardiac Current Visit: No Status: Acute (10) HTN (hypertension) Current Visit: No Status: Chronic Qualifiers: Hypertension type: essential hypertension Qualified Code(s): I10 - Essential (primary) hypertension (11) History of BPH Current Visit: Yes Status: Chronic (12) Hypothyroid Current Visit: Yes Status: Chronic Qualifiers: Hypothyroidism type: unspecified Qualified Code(s): E03.9 - Hypothyroidism , unspecified (13) Methadone maintenance therapy patient Current Visit: Yes Status: Chronic (14) History of seizures Current Visit: No Status: Resolved - AMA Did Patient Leave Against Medical Advice: No
[2019-03-05 09:33] VITALS: BP 124/71; PULSE 73; TEMP 96.4
[2019-03-05] MEDS: NICOTINE 14 MG/24 HOURS TOPICAL PATCH TD SCH (10:27)
[2019-03-05] MEDS: CITALOPRAM HYDROBROMIDE 20 MG TABLET (FP) PO SCH (10:27)
[2019-03-05] MEDS: PRENATAL VITAMINS W/ FOLIC ACID TABLET (FP) PO SCH (10:27)
== END 2019-03-05 13:53 | disposition home or self-care (01) | DRG 773 ==
LOC: YASAS 15:17 → Y6N 20:16
PROVIDERS: ADMIT Allergy & Immunology; ATTEND Allergy & Immunology
PROC: HZ2ZZZZ Detoxification Services for Substance Abuse Treatment (ICD-10-PCS; principal; 2019-03-02)
DX: F10.230 Alcohol dependence with withdrawal, uncomplicated (principal); F11.20 Opioid dependence, uncomplicated; F13.230 Sedative, hypnotic or anxiolytic dependence with withdrawal, uncomplicated; F14.20 Cocaine dependence, uncomplicated; F17.210 Nicotine dependence, cigarettes, uncomplicated; F19.280 Other psychoactive substance dependence with psychoactive substance-induced anxiety disorder; F19.282 Other psychoactive substance dependence with psychoactive substance-induced sleep disorder; F31.9 Bipolar disorder, unspecified; F41.9 Anxiety disorder, unspecified; E05.90 Thyrotoxicosis, unspecified without thyrotoxic crisis or storm; I10 Essential (primary) hypertension; N40.0 Benign prostatic hyperplasia without lower urinary tract symptoms; R01.1 Cardiac murmur, unspecified; L30.9 Dermatitis, unspecified; K40.90 Unilateral inguinal hernia, without obstruction or gangrene, not specified as recurrent; Z86.69 Personal history of other diseases of the nervous system and sense organs
CPT/HCPCS: 36415; 80053; 85027; 86593

== ENCOUNTER 2019-06-01 18:43 | Inpatient (IN) | payer OTHER ==
--- NOTE | 2019-06-01 19:27 | BHS.RME ---
Substance Use & Tx History - Last Treatment Where was last treatment: Detox CIWA Nausea/Vomitin (vomiting x 4) Muscle Tremors: 2 Anxiety: 2 Agitation: 3 Paroxysmal Sweats: 2 Orientation: 0-Oriented Tacttile Disturbances: 0-None Auditory Disturbances: 0-None Visual Disturbances: 0-None Headache: 4-Moderately Severe CIWA-Ar Total Score: 16
--- NOTE | 2019-06-01 19:35 | HP ---
CIWA Score Nausea/Vomitin (vomiting x 4) Muscle Tremors: 2 Anxiety: 2 Agitation: 3 Paroxysmal Sweats: 2 Orientation: 0-Oriented Tacttile Disturbances: 0-None Auditory Disturbances: 0-None Visual Disturbances: 0-None Headache: 4-Moderately Severe CIWA-Ar Total Score: 16 - Admission Criteria OASAS Guidelines: Admission for Medically Managed Detox: Requires at least one of the followin. CIWA greater than 12 2. Seizures within the past 24 hours 3. Delirium tremens within the past 24 hours 4. Hallucinations within the past 24 hours 5. Acute intervention needed for co occurring medical disorder 6. Acute intervention needed for co occurring psychiatric disorder 7. Severe withdrawal that cannot be handled at a lower level of care (continued vomiting, continued diarrhea, abnormal vital signs) requiring intravenous medication and/or fluids 8. Admitting History and Physical - Smoking History Smoking history: Current every day smoker Have you smoked in the past 12 months: Yes Aproximately how many cigarettes per day: 4 - Alcohol/Substance Use Hx Alcohol Use: Yes Admission ROS [facility] Chief Complaint: Alcohol withdrawal symptoms, on MMTP Allergies/Adverse Reactions: Allergies Allergy/AdvReac Type Severity Reaction Status Date / Time No Known Allergies Allergy Verified 06/01/19 20:28 History of Present Illness: 58 yeas old male with a long history of alcohol dependence (since age 16 years) is seeking admission to detox. Patient's last admission to [facility] was for the period 03/02/20109-03/05/2019. He has medical history of hypertension, hyperthroid, cardiac murmur, spinal stenosis, inguinal hernia, BPH and psych. history of Bipolar disorder, depression, ADHD and anxiety. 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 He is on Methadone 110mg tablet oral with [facility] methadone maintenance therapy program. Does is yet to be confirmed by the nurse. Patient reports that he fell down the stairs yesterday at home and did not go to the Hospital. Patient is to be transferred to emergency room for evaluation. Exam Limitations: No Limitations - Ebola screening Have you traveled outside of the country in the last 21 days: No Have you had contact with anyone from an Ebola affected area: No Do you have a fever: No - Review of Systems Constitutional: Chills, Night Sweats, Changes in sleep EENT: reports: No Symptoms Reported Respiratory: reports: No Symptoms reported Cardiac: reports: No Symptoms Reported GI: reports: Diarrhea, Nausea, Poor Appetite, Poor Fluid Intake, Vomiting, Abdominal cramping : reports: No Symptoms Reported Musculoskeletal: reports: Back Pain Integumentary: reports: Dryness, Flushing Neuro: reports: Headache, Tremors Endocrine: reports: No Symptoms Reported Hematology: reports: No Symptoms Reported Psychiatric: reports: Mood/Affect Appropiate, Orientated x3, Anxious, Depressed Other Systems: Reviewed and Negative Patient History - Patient Medical History Hx Anemia: No Hx Asthma: No Hx Chronic Obstructive Pulmonary Disease (COPD): No Hx Cancer: No Hx Cardiac Disorders: No Hx Congestive Heart Failure: No Hx Hypertension: Yes Hx Hypercholesterolemia: No Hx Pacemaker: No HX Cerebrovascular Accident: No Hx Seizures: Yes Hx Dementia: No Hx Diabetes: No Hx Gastrointestinal Disorders: No Hx Liver Disease: No Hx Genitourinary Disorders: Yes (BPH) Hx Sexually Transmitted Disorders: No Hx Renal Disease (ESRD): No Hx Thyroid Disease: Yes (Hypothyroidism) Hx Human Immunodeficiency Virus (HIV): No (NEGATIVE) Hx Hepatitis C: No Hx Depression: Yes Hx Suicide Attempt: No Hx Bipolar Disorder: Yes Hx Schizophrenia: No Other Medical History: SPINAL STENOSIS, INGUINAL HERNIA - Patient Surgical History Past Surgical History: No Hx Neurologic Surgery: No Hx Cataract Extraction: No Hx Cardiac Surgery: No Hx Lung Surgery: No Hx Abdominal Surgery: No Hx Appendectomy: No Hx Cholecystectomy: No Hx Genitourinary Surgery: No Hx Orthopedic Surgery: No Anesthesia Reaction: No - PPD History Previous Implant?: Yes Documented Results: Negative w/o proof Implanted On Prior [facility] Admission?: No PPD to be Administered?: No - Reproductive History Patient is a Female of Child Bearing Age (11 -55 yrs old): No (MALE) - Smoking Cessation Smoking history: Current every day smoker Have you smoked in the past 12 months: Yes Aproximately how many cigarettes per day: 4 Hx Chewing Tobacco Use: No Initiated information on smoking cessation: Yes 'Breaking Loose' booklet given: 06/02/19 - Substance & Tx. History Hx Alcohol Use: Yes Hx Substance Use: Yes Substance Use Type: Alcohol, Cocaine, Opiates Hx Substance Use Treatment: Yes ([facility]) - Substances abused Alcohol Substance route: Oral Frequency: Daily Amount used: 2 PINTS VODKA, 2 x 40oz. Beer Age of first use: 16 Date of last use: 06/01/19 Admission Physical Exam [facility] - Physical General Appearance: Yes: Moderate Distress, Tremorous, Irritable, Sweating, Anxious HEENTM: Yes: Within Normal Limits Respiratory: Yes: Lungs Clear, Normal Breath Sounds, No Respiratory Distress Neck: Yes: Within Normal Limits Breast: Yes: Breast Exam Deferred Cardiology: Yes: Regular Rhythm, Regular Rate Abdominal: Yes: Normal Bowel Sounds Genitourinary: Yes: Within Normal Limits Back: Yes: Normal Inspection Musculoskeletal: Yes: Back pain Extremities: Yes: Tremors Neurological: Yes: Within Normal Limits, Alert, Normal Mood/Affect Integumentary: Yes: Warm Lymphatic: Yes: Within Normal Limits - Diagnostic (1) Hyperthyroidism Current Visit: Yes Status: Chronic (2) Murmur, cardiac Current Visit: Yes Status: Chronic Comment: Patient unaware of murmur (3) Alcohol dependence with uncomplicated withdrawal Current Visit: Yes Status: Acute (4) Anxiety disorder Current Visit: Yes Status: Chronic (5) Cocaine dependence, uncomplicated Current Visit: Yes Status: Chronic (6) History of BPH Current Visit: Yes Status: Chronic (7) Methadone maintenance therapy patient Current Visit: Yes Status: Chronic (8) Opioid dependence on agonist therapy Current Visit: Yes Status: Chronic (9) History of seizures Current Visit: Yes Status: Chronic Comment: Denies recent seizures Cleared for Admission [facility] - Detox or Rehab [facility] Level of Care: Medically Managed Detox Regimen/Protocol: Librium Breathalyzer - Breathalyzer Breathalyzer: 0 Urine Drug Screen - Test Device Lot number: [id number] Expiration date: 02/27/21 - Control Is test valid?: Yes - Results Drug screen NEGATIVE: No Urine drug screen results: NIGHAT-Cocaine, FEN-Fentanyl, MTD-Methadone Inpatient Rehab Admission - Rehab Decision to Admit Inpatient rehab admission?: No
[2019-06-02 00:49] VITALS: BMI 22.0
[2019-06-02] MEDS ORDERED: MENTHOL/PHENOL 1 EACH UD MM PRN (01:34)
[2019-06-02] MEDS ORDERED: ACETAMINOPHEN 325 MG TABLET (FP) PO PRN ×2 (01:34)
[2019-06-02] MEDS ORDERED: METHOCARBAMOL 500 MG TABLET PO PRN (01:34)
[2019-06-02] MEDS ORDERED: MAGNESIUM CITRATE 300 ML BOTTLE PO PRN (01:34)
[2019-06-02] MEDS ORDERED: IBUPROFEN 400 MG TABLET (FP) PO PRN (01:34)
[2019-06-02] MEDS ORDERED: MAGNESIUM HYDROX 2400MG/30ML ORAL SUSPENSION 30 ML CUP PO PRN (01:34)
[2019-06-02] MEDS ORDERED: NICOTINE POLACRILEX 2 MG GUM BUC PRN (01:34)
[2019-06-02] MEDS ORDERED: ONDANSETRON *ODT* 4 MG TABLET SL ONE (01:34)
[2019-06-02] MEDS ORDERED: MAG HYDROX/AL HYDROX/SIMETH 30 ML UNIT-DOSE CUP PO PRN (01:34)
--- NOTE | 2019-06-02 01:46 | PN ---
LIZETTE Progress Note Note: Patient came back from emergency room where he was sent for clearance because he reported that he fell from the stairs at home. As per emergency room his labs were within norm, there was no neuro deficits an d the CT of the head and neck did not show any acute pathology. Patient is medically cleared for [id number] to detox Vital Signs Temperature 97.2 F L 06/02/19 00:46 Pulse Rate 61 06/02/19 00:46 Respiratory Rate 18 06/02/19 00:46 Blood Pressure 117/66 06/02/19 00:46 O2 Sat by Pulse Oximetry (%) Action: Monitor patient
[2019-06-02] MEDS: chlordiazePOXIDE HCL 25 MG CAPSULE PO PRN ×2 (02:58→14:50)
[2019-06-02] MEDS: hydrOXYzine PAMOATE 25 MG CAPSULE (FP) PO SCH ×5 (06:07→22:03)
[2019-06-02] MEDS: chlordiazePOXIDE HCL 25 MG CAPSULE PO SCH ×4 (07:10→22:03)
[2019-06-02] MEDS: LEVOTHYROXINE NA 100 MCG TABLET (FP) PO SCH (07:20)
--- NOTE | 2019-06-02 08:41 | EKG ---
Test Reason : Blood Pressure : / mmHG Vent. Rate : 058 BPM Atrial Rate : 058 BPM P-R Int : 156 ms QRS Dur : 102 ms QT Int : 482 ms P-R-T Axes : 067 001 059 degrees QTc Int : 473 ms SINUS BRADYCARDIA OTHERWISE NORMAL ECG WHEN COMPARED WITH ECG OF 14-OCT-2018 01:01, NO SIGNIFICANT CHANGE WAS FOUND Confirmed by MD HUERTA PENG ([id number]) on 06/02/2019 8:41:02 AM Referred By: LLUVIA Confirmed By:RELL HUERTA MD
[2019-06-02] MEDS ORDERED: METHADONE HCL 10 MG TABLET PO ONE (08:45)
--- NOTE | 2019-06-02 09:07 | PN ---
S CIWA - CIWA Score Nausea/Vomitin-Mild Nausea/No Vomiting Muscle Tremors: 2 Anxiety: 2 Agitation: 2 Paroxysmal Sweats: No Perspiration Orientation: 0-Oriented Tacttile Disturbances: 1-Very Mild Itch/Numbness Auditory Disturbances: 0-None Visual Disturbances: 0-None Headache: 1-Very Mild CIWA-Ar Total Score: 9 BHS Progress Note (SOAP) Subjective: alert,irritable,anxious,interrupted sleep,aching pain Objective: 06/02/19 09:06 Vital Signs Temperature 98.4 F 06/02/19 05:08 Pulse Rate 63 06/02/19 05:08 Respiratory Rate 18 06/02/19 05:08 Blood Pressure 123/68 06/02/19 05:08 O2 Sat by Pulse Oximetry (%) Assessment: 06/02/19 09:06 withdrawal symptom Plan: continue detox librium regimen
[2019-06-02] MEDS ORDERED: METHADONE 120 MG, METHADONE 10 MG PO ONE (09:15)
[2019-06-02] MEDS ORDERED: METHADONE HCL 10 MG TABLET ONE (09:21)
[2019-06-02] MEDS ORDERED: METHADONE HCL 40 MG DISPERSABLE TABLET ONE (09:22)
[2019-06-02] MEDS ORDERED: NICOTINE 7 MG/24 HOURS TOPICAL PATCH TD SCH (10:00)
[2019-06-02] MEDS: PRENATAL VITAMINS W/ FOLIC ACID TABLET (FP) PO SCH (10:05)
[2019-06-02] MEDS: TAMSULOSIN HCL 0.4 MG CAP PO SCH (10:05)
[2019-06-02] MEDS: NICOTINE 14 MG/24 HOURS TOPICAL PATCH TD SCH (10:30)
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
[2019-06-02] MEDS: CITALOPRAM HYDROBROMIDE 20 MG TABLET PO SCH (14:50)
[2019-06-02] MEDS: COLLOIDAL OATMEAL 1 BAR EACH TP PRN (22:02)
[2019-06-02] MEDS: MELATONIN 5 MG TABLETS PO SCH (22:04)
[2019-06-02] MEDS: THIAMINE HCL 100 MG TABLET (FP) PO SCH (22:04)
[2019-06-02] MEDS: FLUTICASONE PROP 0.05% 16 GM NASAL SPRAY NS SCH (22:04)
[2019-06-03] MEDS ORDERED: METHADONE HCL 10 MG TABLET ONE (04:22)
[2019-06-03] MEDS ORDERED: METHADONE HCL 40 MG DISPERSABLE TABLET ONE (04:23)
[2019-06-03] MEDS ORDERED: METHADONE HCL 40 MG DISPERSABLE TABLET PO SCH (06:00)
[2019-06-03] MEDS: chlordiazePOXIDE HCL 25 MG CAPSULE PO SCH ×4 (07:40→22:19)
[2019-06-03] MEDS: METHADONE 120 MG, METHADONE 10 MG PO SCH (07:40)
[2019-06-03] MEDS: LEVOTHYROXINE NA 100 MCG TABLET (FP) PO SCH (07:41)
[2019-06-03] MEDS: hydrOXYzine PAMOATE 25 MG CAPSULE (FP) PO SCH ×5 (07:41→22:19)
--- NOTE | 2019-06-03 08:58 | PN ---
S CIWA - CIWA Score Nausea/Vomitin-Mild Nausea/No Vomiting Muscle Tremors: 2 Anxiety: 3 Agitation: 3 Paroxysmal Sweats: 1-Minimal Palms Moist Orientation: 0-Oriented Tacttile Disturbances: 1-Very Mild Itch/Numbness Auditory Disturbances: 0-None Visual Disturbances: 1-Very Mild Sensitivity Headache: 1-Very Mild CIWA-Ar Total Score: 13 BHS Progress Note (SOAP) Subjective: alert,irritable,anxious,interrupted sleep,tremor,pain in the body and back Objective: 06/03/19 09:10 Vital Signs Temperature 96.3 F L 06/03/19 07:31 Pulse Rate 54 L 06/03/19 07:31 Respiratory Rate 18 06/03/19 07:31 Blood Pressure 112/65 06/03/19 07:31 O2 Sat by Pulse Oximetry (%) Assessment: 06/03/19 09:12 withdrawal symptom Plan: continue detox librium regimen,continue methadone 130 mgs po daily maintenance
[2019-06-03] MEDS: TAMSULOSIN HCL 0.4 MG CAP PO SCH ×2 (10:10→10:41)
[2019-06-03] MEDS: CITALOPRAM HYDROBROMIDE 20 MG TABLET PO SCH (10:41)
[2019-06-03] MEDS: PRENATAL VITAMINS W/ FOLIC ACID TABLET (FP) PO SCH (10:41)
[2019-06-03] MEDS: FLUTICASONE PROP 0.05% 16 GM NASAL SPRAY NS SCH ×2 (10:44→23:37)
[2019-06-03] MEDS: NICOTINE 14 MG/24 HOURS TOPICAL PATCH TD SCH (11:19)
[2019-06-03] MEDS ORDERED: ONDANSETRON *ODT* 4 MG TABLET SL PRN (11:28)
[2019-06-03 13:14] LABS: HEMATOCRIT 40.7 % (35.4-49); HEMOGLOBIN 13.4 GM/dL (11.7-16.9); MCH 31.5 pg (25.7-33.7); MCHC 32.9 g/dl (32.0-35.9); MEAN CELL VOLUME 95.8 fl (80-96); MEAN PLT VOLUME 9.7 fl (7.5-11.1); PLATELET COUNT 235 K/MM3 (134-434); RBC 4.25 M/mm3 (4.00-5.60); WHITE BLOOD COUNT 14.7 K/mm3 (4.0-10.0)
[2019-06-03 13:19] LABS: ALBUMIN 3.2 g/dl (3.4-5.0); BILIRUBIN,TOTAL 0.4 mg/dL (0.2-1); CALCIUM 8.7 mg/dL (8.5-10.1); CREATININE 0.8 mg/dL (0.55-1.3); POTASSIUM 4.3 mmol/L (3.5-5.1); TOT PROT 6.1 g/dl (6.4-8.2)
[2019-06-03] MEDS: BISMUTH SUBSALICYLATE 524 MG/30 ML UD PO PRN (15:03)
[2019-06-03] MEDS: THIAMINE HCL 100 MG TABLET (FP) PO SCH (22:19)
[2019-06-03] MEDS: MELATONIN 5 MG TABLETS PO SCH (22:19)
[2019-06-04] MEDS ORDERED: chlordiazePOXIDE HCL 10 MG CAPSULE PO PRN
[2019-06-04] MEDS ORDERED: METHADONE HCL 10 MG TABLET ONE (04:52)
[2019-06-04] MEDS ORDERED: METHADONE HCL 40 MG DISPERSABLE TABLET ONE (04:53)
[2019-06-04] MEDS: chlordiazePOXIDE HCL 10 MG CAPSULE PO SCH ×4 (05:14→22:17)
[2019-06-04] MEDS: METHADONE 120 MG, METHADONE 10 MG PO SCH (05:14)
[2019-06-04] MEDS: hydrOXYzine PAMOATE 25 MG CAPSULE (FP) PO SCH ×5 (05:14→22:17)
[2019-06-04] MEDS: LEVOTHYROXINE NA 100 MCG TABLET (FP) PO SCH (07:21)
--- NOTE | 2019-06-04 09:20 | PN ---
S CIWA - CIWA Score Nausea/Vomitin-Mild Nausea/No Vomiting Muscle Tremors: 1-None Visible, but [place] Anxiety: 2 Agitation: 2 Paroxysmal Sweats: No Perspiration Orientation: 0-Oriented Tacttile Disturbances: 1-Very Mild Itch/Numbness Auditory Disturbances: 0-None Visual Disturbances: 0-None Headache: 2-Mild CIWA-Ar Total Score: 9 BHS Progress Note (SOAP) Subjective: alert,irritable,anxious,interrupted sleep,aching pain in the body, Objective: Vital Signs Temperature 97 F L 06/04/19 06:18 Pulse Rate 63 06/04/19 06:18 Respiratory Rate 20 06/04/19 06:18 Blood Pressure 111/63 06/04/19 06:18 O2 Sat by Pulse Oximetry (%) Laboratory Last Values WBC 14.7 K/mm3 (4.0-10.0) H 06/03/19 09:00 RBC 4.25 M/mm3 (4.00-5.60) 06/03/19 09:00 Hgb 13.4 GM/dL (11.7-16.9) 06/03/19 09:00 Hct 40.7 % (35.4-49) 06/03/19 09:00 MCV 95.8 fl (80-96) 06/03/19 09:00 MCH 31.5 pg (25.7-33.7) 06/03/19 09:00 MCHC 32.9 g/dl (32.0-35.9) 06/03/19 09:00 RDW 14.0 % (11.9-15.9) 06/03/19 09:00 Plt Count 235 K/MM3 (134-434) 06/03/19 09:00 MPV 9.7 fl (7.5-11.1) 06/03/19 09:00 Sodium 140 mmol/L (136-145) 06/03/19 09:00 Potassium 4.3 mmol/L (3.5-5.1) 06/03/19 09:00 Chloride 106 mmol/L (98-107) 06/03/19 09:00 Carbon Dioxide 30 mmol/L (21-32) 06/03/19 09:00 Anion Gap 4 MMOL/L (8-16) L 06/03/19 09:00 BUN 22.0 mg/dL (7-18) H 06/03/19 09:00 Creatinine 0.8 mg/dL (0.55-1.3) 06/03/19 09:00 Est GFR (CKD-EPI)AfAm 114.13 06/03/19 09:00 Est GFR (CKD-EPI)NonAf 98.47 06/03/19 09:00 Random Glucose 70 mg/dL (74-106) L 06/03/19 09:00 Calcium 8.7 mg/dL (8.5-10.1) 06/03/19 09:00 Total Bilirubin 0.4 mg/dL (0.2-1) 06/03/19 09:00 AST 5 U/L (15-37) L 06/03/19 09:00 ALT 14 U/L (13-61) 06/03/19 09:00 Alkaline Phosphatase 90 U/L (45-117) 06/03/19 09:00 Total Protein 6.1 g/dl (6.4-8.2) L 06/03/19 09:00 Albumin 3.2 g/dl (3.4-5.0) L 06/03/19 09:00 RPR Titer Nonreactive (NONREACTIVE) 06/03/19 09:00 06/04/19 09:19 Assessment: 06/04/19 09:21 withdrawal symptom Plan: continue detox librium regimen,methadone maintenance 130mgs daily,encourage oral fluid lukocytosis 14.7,bun 22 azothemia probably due to dehydration encourage oral fluid, repeat cbc,bup in am
[2019-06-04] MEDS: NICOTINE 14 MG/24 HOURS TOPICAL PATCH TD SCH (10:18)
[2019-06-04] MEDS: PRENATAL VITAMINS W/ FOLIC ACID TABLET (FP) PO SCH (10:19)
[2019-06-04] MEDS: TAMSULOSIN HCL 0.4 MG CAP PO SCH (10:19)
[2019-06-04] MEDS: CITALOPRAM HYDROBROMIDE 20 MG TABLET PO SCH (10:19)
[2019-06-04] MEDS: FLUTICASONE PROP 0.05% 16 GM NASAL SPRAY NS SCH ×2 (10:20→22:18)
[2019-06-04] MEDS: THIAMINE HCL 100 MG TABLET (FP) PO SCH (22:17)
[2019-06-04] MEDS: MELATONIN 5 MG TABLETS PO SCH (22:17)
[2019-06-05] MEDS ORDERED: METHADONE HCL 40 MG DISPERSABLE TABLET ONE (05:55)
[2019-06-05] MEDS ORDERED: METHADONE HCL 10 MG TABLET ONE (05:55)
[2019-06-05] MEDS: chlordiazePOXIDE HCL 10 MG CAPSULE PO SCH ×2 (06:01→17:32)
[2019-06-05] MEDS: METHADONE 120 MG, METHADONE 10 MG PO SCH (06:01)
[2019-06-05] MEDS: LEVOTHYROXINE NA 100 MCG TABLET (FP) PO SCH (06:02)
[2019-06-05] MEDS: hydrOXYzine PAMOATE 25 MG CAPSULE (FP) PO SCH ×5 (06:02→22:22)
[2019-06-05] MEDS ORDERED: NICOTINE POLACRILEX 2 MG GUM BC PRN (09:06)
[2019-06-05 09:12] LABS: HEMATOCRIT 40.5 % (35.4-49); HEMOGLOBIN 13.5 GM/dL (11.7-16.9); MCH 31.9 pg (25.7-33.7); MCHC 33.5 g/dl (32.0-35.9); MEAN CELL VOLUME 95.5 fl (80-96); MEAN PLT VOLUME 9.9 fl (7.5-11.1); PLATELET COUNT 239 K/MM3 (134-434); RBC 4.24 M/mm3 (4.00-5.60); RDW 14.1 % (11.9-15.9); WHITE BLOOD COUNT 12.9 K/mm3 (4.0-10.0)
[2019-06-05 09:18] LABS: BLOOD UREA NITROGEN 19.2 mg/dL (7-18); CALCIUM 8.6 mg/dL (8.5-10.1); CREATININE 0.8 mg/dL (0.55-1.3); POTASSIUM 4.4 mmol/L (3.5-5.1)
[2019-06-05] MEDS: COLLOIDAL OATMEAL 1 BAR EACH TP PRN (09:39)
--- NOTE | 2019-06-05 09:59 | PN ---
[facility] CIWA - CIWA Score Nausea/Vomitin-No Nausea/No Vomiting Muscle Tremors: 1-None Visible, but [place] Anxiety: 2 Agitation: 2 Paroxysmal Sweats: No Perspiration Orientation: 0-Oriented Tacttile Disturbances: 0-None Auditory Disturbances: 0-None Visual Disturbances: 0-None Headache: 1-Very Mild CIWA-Ar Total Score: 6 S Progress Note (SOAP) Subjective: alert,irritable,anxious,interrupted sleep,less withdrawal symptom Objective: 06/05/19 09:56 Laboratory Results - last 24 hr 06/05/19 06/05/19 07:40 07:40 WBC 12.9 H RBC 4.24 Hgb 13.5 Hct 40.5 MCV 95.5 MCH 31.9 MCHC 33.5 RDW 14.1 Plt Count 239 MPV 9.9 Sodium 140 Potassium 4.4 Chloride 104 Carbon Dioxide 32 Anion Gap 4 L BUN 19.2 H Creatinine 0.8 Est GFR (CKD-EPI)AfAm 114.13 Est GFR (CKD-EPI)NonAf 98.47 Random Glucose 75 Calcium 8.6 improved on dehydration Assessment: 06/05/19 09:57 withdrawal symptom Plan: continue detox librium regimen,continue oral fluid encouragement,continue methadone maintenance 130 mgs/day,discharge in am
[2019-06-05] MEDS: TAMSULOSIN HCL 0.4 MG CAP PO SCH (10:49)
[2019-06-05] MEDS: CITALOPRAM HYDROBROMIDE 20 MG TABLET PO SCH (10:49)
[2019-06-05] MEDS: NICOTINE 14 MG/24 HOURS TOPICAL PATCH TD SCH (10:50)
[2019-06-05] MEDS: PRENATAL VITAMINS W/ FOLIC ACID TABLET (FP) PO SCH (10:50)
[2019-06-05] MEDS: FLUTICASONE PROP 0.05% 16 GM NASAL SPRAY NS SCH ×2 (10:50→22:21)
[2019-06-05] MEDS: MELATONIN 5 MG TABLETS PO SCH (22:21)
[2019-06-05] MEDS: THIAMINE HCL 100 MG TABLET (FP) PO SCH (22:21)
[2019-06-06] MEDS: BISMUTH SUBSALICYLATE 524 MG/30 ML UD PO PRN ×2 (03:25→06:15)
[2019-06-06] MEDS ORDERED: chlordiazePOXIDE HCL 10 MG CAPSULE PO ONE (05:00)
[2019-06-06] MEDS ORDERED: METHADONE HCL 10 MG TABLET ONE (05:18)
[2019-06-06] MEDS ORDERED: METHADONE HCL 40 MG DISPERSABLE TABLET ONE (05:19)
[2019-06-06] MEDS: METHADONE 120 MG, METHADONE 10 MG PO SCH (06:07)
[2019-06-06] MEDS: LEVOTHYROXINE NA 100 MCG TABLET (FP) PO SCH (06:08)
[2019-06-06] MEDS: hydrOXYzine PAMOATE 25 MG CAPSULE (FP) PO SCH ×2 (06:08→10:23)
--- NOTE | 2019-06-06 08:42 | DS ---
[facility] Detox Discharge Summary Admission Date: 06/02/19 Discharge Date: 06/06/19 - History Present History: Alcohol Dependence, Cocaine Dependence, Sedative Dependence, MMTP - Physical Exam Results Vital Signs: Vital Signs Temperature 96.9 F L 06/06/19 05:37 Pulse Rate 62 06/06/19 05:37 Respiratory Rate 18 06/06/19 06:38 Blood Pressure 109/56 L 06/06/19 05:37 O2 Sat by Pulse Oximetry (%) Pertinent Admission Physical Exam Findings: Vital Signs Temperature 96.9 F L 06/06/19 05:37 Pulse Rate 62 06/06/19 05:37 Respiratory Rate 18 06/06/19 06:38 Blood Pressure 109/56 L 06/06/19 05:37 O2 Sat by Pulse Oximetry (%) Laboratory Tests 06/03/19 06/03/19 06/03/19 09:00 09:00 09:00 WBC 14.7 H RBC 4.25 Hgb 13.4 Hct 40.7 MCV 95.8 MCH 31.5 MCHC 32.9 RDW 14.0 Plt Count 235 MPV 9.7 Sodium 140 Potassium 4.3 Chloride 106 Carbon Dioxide 30 Anion Gap 4 L BUN 22.0 H Creatinine 0.8 Est GFR (CKD-EPI)AfAm 114.13 Est GFR (CKD-EPI)NonAf 98.47 Random Glucose 70 L Calcium 8.7 Total Bilirubin 0.4 AST 5 L ALT 14 Alkaline Phosphatase 90 Total Protein 6.1 L Albumin 3.2 L RPR Titer Nonreactive 06/05/19 06/05/19 07:40 07:40 WBC 12.9 H RBC 4.24 Hgb 13.5 Hct 40.5 MCV 95.5 MCH 31.9 MCHC 33.5 RDW 14.1 Plt Count 239 MPV 9.9 Sodium 140 Potassium 4.4 Chloride 104 Carbon Dioxide 32 Anion Gap 4 L BUN 19.2 H Creatinine 0.8 Est GFR (CKD-EPI)AfAm 114.13 Est GFR (CKD-EPI)NonAf 98.47 Random Glucose 75 Calcium 8.6 Total Bilirubin AST ALT Alkaline Phosphatase Total Protein Albumin RPR Titer aaox3 ambulating no acute distress lungs CTA - Treatment Hospital Course: Detox Protocol Followed, Detoxed Safely, Responded well, D ischarged Condition Good, Rehab Referral Accepted - Medication Discharge Medications: Ambulatory Orders Levothyroxine [Synthroid -] 100 mcg PO DAILY@0700 #30 tablet 10/16/18 Tamsulosin HCl [Flomax -] 0.4 mg PO DAILY #30 cap.er.24h 10/16/18 Citalopram Hydrobromide [Celexa -] 40 mg PO DAILY 03/02/19 Metoprolol Succinate [Toprol Xl] 50 mg PO DAILY 03/02/19 Multivitamins [Tab-A-Vit -] 1 tab PO DAILY 03/02/19 - Diagnosis (1) Alcohol dependence with uncomplicated withdrawal Current Visit: Yes Status: Chronic (2) Cocaine dependence, uncomplicated Current Visit: Yes Status: Chronic (3) Substance-induced sleep disorder Current Visit: Yes Status: Acute (4) Anxiety disorder Current Visit: Yes Status: Chronic (5) History of BPH Current Visit: Yes Status: Chronic (6) Hyperthyroidism Current Visit: Yes Status: Chronic (7) Methadone maintenance therapy patient Current Visit: Yes Status: Chronic (8) Murmur, cardiac Current Visit: Yes Status: Chronic (9) Nicotine dependence Current Visit: Yes Status: Chronic Qualifiers: Nicotine product type: cigarettes Substance use status: uncomplicated Qualified Code(s): F17.210 - Nicotine dependence, cigarettes, uncomplicated (10) Opioid dependence on agonist therapy Current Visit: Yes Status: Chronic (11) History of seizures Current Visit: Yes Status: Resolved (12) Substance-induced anxiety disorder Current Visit: No Status: Acute (13) Substance-induced sleep disorder Current Visit: No Status: Acute (14) HTN (hypertension) Current Visit: No Status: Chronic Qualifiers: Hypertension type: essential hypertension Qualified Code(s): I10 - Essential (primary) hypertension (15) Hypothyroid Current Visit: No Status: Chronic Qualifiers: Hypothyroidism type: unspecified Qualified Code(s): E03.9 - Hypothyroidism, unspecified (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
[2019-06-06 10:18] VITALS: BP 107/65; PULSE 55; TEMP 97.7
[2019-06-06] MEDS: TAMSULOSIN HCL 0.4 MG CAP PO SCH (10:21)
[2019-06-06] MEDS: PRENATAL VITAMINS W/ FOLIC ACID TABLET (FP) PO SCH (10:21)
[2019-06-06] MEDS: CITALOPRAM HYDROBROMIDE 20 MG TABLET PO SCH (10:21)
[2019-06-06] MEDS: NICOTINE 14 MG/24 HOURS TOPICAL PATCH TD SCH (10:23)
[2019-06-06] MEDS: FLUTICASONE PROP 0.05% 16 GM NASAL SPRAY NS SCH (10:23)
== END 2019-06-06 12:11 | disposition home or self-care (01) | DRG 773 ==
LOC: YASAS 18:43 → Y6N 06-02 01:44
PROVIDERS: ADMIT Allergy & Immunology; ATTEND Allergy & Immunology
PROC: HZ2ZZZZ Detoxification Services for Substance Abuse Treatment (ICD-10-PCS; principal; 2019-06-02)
DX: F10.230 Alcohol dependence with withdrawal, uncomplicated (principal); F11.20 Opioid dependence, uncomplicated; F13.20 Sedative, hypnotic or anxiolytic dependence, uncomplicated; F14.20 Cocaine dependence, uncomplicated; F17.210 Nicotine dependence, cigarettes, uncomplicated; F19.282 Other psychoactive substance dependence with psychoactive substance-induced sleep disorder; F19.280 Other psychoactive substance dependence with psychoactive substance-induced anxiety disorder; E03.9 Hypothyroidism, unspecified; F41.9 Anxiety disorder, unspecified; F31.9 Bipolar disorder, unspecified; I10 Essential (primary) hypertension; N40.0 Benign prostatic hyperplasia without lower urinary tract symptoms; K40.90 Unilateral inguinal hernia, without obstruction or gangrene, not specified as recurrent; R01.1 Cardiac murmur, unspecified; Z86.69 Personal history of other diseases of the nervous system and sense organs
CPT/HCPCS: 36415; 80048; 80053; 85027; 86593; 93005; 93010; Q0162

== ENCOUNTER 2019-06-01 20:12 | Emergency (ER) | payer OTHER ==
[2019-06-01 20:28] VITALS: BP 141/69; PULSE 61; TEMP 97.1; BMI 22.0
[2019-06-01] MEDS ORDERED: chlordiazePOXIDE HCL 25 MG CAPSULE PO ONE (20:38)
[2019-06-01] MEDS ORDERED: chlordiazePOXIDE HCL 25 MG CAPSULE ONE (20:51)
--- NOTE | 2019-06-01 21:16 | PDOC ---
History of Present Illness - General Chief Complaint: Injury Stated Complaint: FALL Time Seen by Provider: 06/01/19 20:56 - History of Present Illness Initial Comments: The pt is a 58M w/ a history of anxiety and EtOH abuse who presents for evaluation from [facility] intake for evaluation of a fall yesterday. The pt endorses hitting the right side of his head but denies LOC or sensation changes/ weakness. Reports right knee pain but has been able to ambulate. Denies N/V, fevers, chest pain, trouble breathing, wounds/rash. Last drink yesterday, denies tremors Denies history of withdrawal seizure PMH: anxiety PSH: Denies SH: +tobacco and daily EtOH use (several beers daily) 06/01/19 21:11 Past History - Past Medical History Allergies/Adverse Reactions: Allergies Allergy/AdvReac Type Severity Reaction Status Date / Time No Known Allergies Allergy Verified 06/01/19 20:28 Home Medications: Ambulatory Orders Levothyroxine [Synthroid -] 100 mcg PO DAILY@0700 #30 tablet 10/16/18 Tamsulosin HCl [Flomax -] 0.4 mg PO DAILY #30 cap.er.24h 10/16/18 Citalopram Hydrobromide [Celexa -] 40 mg PO DAILY 03/02/19 Metoprolol Succinate [Toprol Xl] 50 mg PO DAILY 03/02/19 Multivitamins [Tab-A-Vit -] 1 tab PO DAILY 03/02/19 Asthma: No Cardiac Disorders: No COPD: No Diabetes: No GI Disorders: No Disorders: No HTN: Yes Kidney Stones: No Seizures: Yes - Surgical History Abdominal Surgery: No Appendectomy: No Cardiac Surgery: No Cholecystectomy: No Lung Surgery: No Neurologic Surgery: No Orthopedic Surgery: No - Reproductive History Testicular Surgery: No - Psycho Social/Smoking Cessation Hx Smoking History: Current every day smoker Have you smoked in the past 12 months: Yes Number of Cigarettes Smoked Daily: 10 Information on smoking cessation initiated: No 'Breaking Loose' booklet given: 03/02/19 Hx Alcohol Use: Yes Drug/Substance Use Hx: Yes Substance Use Type: Alcohol, Cocaine, Heroin, Opiates, Tranquilizers Hx Substance Use Treatment: No Review of Systems - Review of Systems Able to Perform ROS?: Yes Comments:: GENERAL/CONSTITUTIONAL: No fever or chills. No weakness HEAD, EYES, EARS, NOSE AND THROAT: No change in vision. No change in hearing. No sore throat CARDIOVASCULAR: No chest pain or shortness of breath RESPIRATORY: Denies cough, hemoptysis GASTROINTESTINAL: No nausea, vomiting, diarrhea or constipation GENITOURINARY: No dysuria, frequency, or change in urination MUSCULOSKELETAL: No joint or muscle swelling or pain. No neck or back pain SKIN: No rash NEUROLOGIC: No vertigo, loss of consciousness, or change in strength ENDOCRINE: No increased thirst. No abnormal weight change HEMATOLOGIC/LYMPHATIC: No anemia, easy bleeding, or history of blood clots ALLERGIC/IMMUNOLOGIC: No hives or skin allergy 06/01/19 21:14 Is the patient limited Polish proficient: No *Physical Exam - Vital Signs Last Vital Signs Temp Pulse Resp BP Pulse Ox 97.1 F L 61 20 141/69 97 06/01/19 20:18 06/01/19 20:18 06/01/19 20:18 06/01/19 20:18 06/01/19 20:18 - Physical Exam GENERAL: Awake, alert, and oriented to person/place/time, in no acute distress HEAD: No signs of trauma, normocephalic, atraumatic EYES: PERRLA, EOMI, sclera anicteric, conjunctiva clear ENT: Hearing grossly normal, nares patent, oropharynx clear without exudates. Moist mucosa. Tongue fasciculations NECK: No midline TTP, no deformity LUNGS: No distress, speaks in full sentences, clear to auscultation bilaterally HEART: Regular rate and rhythm, normal S1 and S2, no murmurs appreciated, peripheral pulses normal and equal bilaterally ABDOMEN: Soft, nontender, normoactive bowel sounds. No guarding, no rebound EXTREMITIES: Normal inspection, Normal range of motion, no edema. No clubbing or cyanosis NEUROLOGICAL: Cranial nerves II through XII grossly intact. Normal speech, normal gait, no focal sensorimotor deficits SKIN: Warm, Dry 06/01/19 21:14 ED Treatment Course - LABORATORY CBC & Chemistry Diagram: 06/01/19 21:00 06/01/19 21:00 - RADIOLOGY Radiology Studies Ordered: Category Date Time Status CERVICAL SPINE CT W/O CONTR [CT] Stat CT Scan 06/01/19 20:[address] WITHOUT CONTRAST [CT] Stat CT Scan 06/01/19 20:37 Ordered CHEST - PA [RAD] Stat Radiology 06/01/19 20:37 Taken - Medications Given in the ED: ED Medications Discontinued Medications Generic Name Dose Route Start Last Admin Trade Name Kalyan PRN Reason Stop Dose Admin Chlordiazepoxide HCl 25 mg 06/01/19 20:38 06/01/19 20:54 Librium - PO 06/01/19 20:39 25 mg ONCE ONE Administration Medical Decision Making - Medical Decision Making The pt is a 58M w/ a history of anxiety and EtOH abuse who presents for evaluation from [facility] intake for evaluation of a fall yesterday. Pt desires to be discharged back to [facility] ED Course CMP, CBC, Trop I ECG CXR CT head and c-spine Librium 25mg PO once as pt beginning to have tongue fasciculations 06/01/19 21:16 No leukocytosis No anemia Lytes unremarkable LFTs wnl Trop I neg CXR w/o acute pathology ECG w/ sinus bradycardia, HR 53; QTc 448; no ROCAEL Pt pending CT reads Plan for D/C to [facility] Pt signed out to Dr. Henriquez 06/01/19 22:16 Discharge - Discharge Information Problems reviewed: Yes Clinical Impression/Diagnosis: Fall Qualifiers: Encounter type: initial encounter Qualified Code(s): W19.XXXA - Unspecified fall, initial encounter Condition: Stable - Admission No - Follow up/Referral - Patient Discharge Instructions Patient Printed Discharge Instructions: DI for Alcohol Abuse Additional Instructions: You were seen in the Emergency Department for evaluation after a fall. Your labs and imaging were unremarkable. Review the handout provided at discharge. Follow up with your primary care provider. Return to the Emergency Department if you develop fevers, chest pain, trouble breathing, worsening pain, change in sensation, worsening symptoms, or any new/ concerning symptoms. - Post Discharge Activity
[2019-06-01 21:25] LABS: BASO % 0.3 % (0-2.0); EOS % 4.1 % (0-4.5); HEMATOCRIT 42.7 % (35.4-49); HEMOGLOBIN 14.1 GM/dL (11.7-16.9); LYMPH % 24.4 % (8-40); MCH 31.3 pg (25.7-33.7); MEAN PLT VOLUME 9.5 fl (7.5-11.1); NEUT % 61.2 % (42.8-82.8); PLATELET COUNT 277 K/MM3 (134-434); RDW 14.2 % (11.9-15.9); WHITE BLOOD COUNT 9.5 K/mm3 (4.0-10.0)
[2019-06-01 21:54] LABS: ALBUMIN 3.1 g/dl (3.4-5.0); BILIRUBIN,TOTAL 0.5 mg/dL (0.2-1); BLOOD UREA NITROGEN 24.1 mg/dL (7-18); CALCIUM 8.7 mg/dL (8.5-10.1); CREATININE 0.8 mg/dL (0.55-1.3); POTASSIUM 4.1 mmol/L (3.5-5.1); TOT PROT 6.1 g/dl (6.4-8.2)
--- NOTE | 2019-06-01 22:05 | PDOC ---
Documentation entered by Marc Mcallister SCRIBE, acting as scribe for Marcy Castañeda MD. Marcy Castañeda MD: This documentation has been prepared by the Ary patino Xhesika, SCRIBE, under my direction and personally reviewed by me in its entirety. I confirm that the documentation accurately reflects all work, treatment, procedures, and medical decision making performed by me. Attending Attestation - Resident Resident Name: Jose Negron - ED Attending Attestation I have performed the following: I have examined & evaluated the patient, The case was reviewed & discussed with the resident, I agree w/resident's findings & plan, Exceptions are as noted - HPI HPI: 06/01/19 20:59 The patient is a 58 year old male with a significant PMH of alcohol and polysubstance abuse, Bipolar disorder, depression, ADHD and anxiety who presents to the emergency department [facility] from [facility] intake for medical clearance. Per [facility] pt had a fall yesterday. The patient denies chest pain, shortness of breath, headache and dizziness. Denies fever, chills, cough, nausea, vomiting, diarrhea and constipation. Allergies: NKDA - Physicial Exam PE: 06/01/19 22:06 wnwd 58 yo male with no c/o extremity pain or headache head ncat neck no midline vertebral cervical tenderness lungs cta b/l cvs [id number] abd nontender skin warm and dry neuro axox3,moving all extremities - Medical Decision Making 06/01/19 22:03 The 58-year-old male brought over from [facility] because he fell the other day. He currently has no complaints of chest pain ,shortness of breath ,extremity deformity ,nausea ,vomiting ,fever ,chills. EKG is bradycardia at [address] elevations or depressions 06/01/19 22:11 Labs reviewed 06/01/19 22: CAT scan of the head without contrast impression No CT evidence of acute intracranial pathology,Mild nonspecific bilateral frontoparietal subcortical white matter hypodensity is seen probably on the basis of mild chronic microvascular ischemic changes given the patient's name Paranasal sinus mucosal thickening 06/02/19 00:04 CAT scan of the C-spine was negative for any acute fracture [facility] detox was notified the patient would be transferred back to the facility by security
--- NOTE | 2019-06-01 23:59 | PDOC ---
*Physical Exam - Vital Signs Last Vital Signs Temp Pulse Resp BP Pulse Ox 97.1 F L 61 20 141/69 97 06/01/19 20:18 06/01/19 20:18 06/01/19 20:18 06/01/19 20:18 06/01/19 20:18 ED Treatment Course - LABORATORY CBC & Chemistry Diagram: 06/01/19 21:00 06/01/19 21:00 - ADDITIONAL ORDERS Additional order review: Laboratory Results 06/01/19 06/01/19 21:00 21:00 Sodium 139 Potassium 4.1 Chloride 105 Carbon Dioxide 31 Anion Gap 3 L BUN 24.1 H Creatinine 0.8 Est GFR (CKD-EPI)AfAm 114.13 Est GFR (CKD-EPI)NonAf 98.47 Random Glucose 96 Calcium 8.7 Total Bilirubin 0.5 AST 9 L ALT 15 Alkaline Phosphatase 91 Troponin I < 0.02 Total Protein 6.1 L Albumin 3.1 L 06/01/19 21:00 RBC 4.50 MCV 95.0 MCHC 33.0 RDW 14.2 MPV 9.5 Neutrophils % 61.2 Lymphocytes % 24.4 Monocytes % 10.0 Eosinophils % 4.1 Basophils % 0.3 - Medications Given in the ED: ED Medications Discontinued Medications Generic Name Dose Route Start Last Admin Trade Name Freq PRN Reason Stop Dose Admin Chlordiazepoxide HCl 25 mg 06/01/19 20:38 06/01/19 20:54 Librium - PO 06/01/19 20:39 25 mg ONCE ONE Administration Medical Decision Making - Medical Decision Making 06/02/19 00:00 s/o from day team 58 yo male ETOH abuse, had a fall yesterday. [facility] sent pt for head and C spine CT Labs wnl including trops CT head and Neck no acute path Pt has no neuro deficits or complaints at this time Pt safe for DC back to [facility] S/O given to DORMITORY KEEPER Kylee and pt will be taken back to [facility] via security Discharge - Discharge Information Problems reviewed: Yes Clinical Impression/Diagnosis: Fall Condition: Stable Disposition: HOME - Admission No - Follow up/Referral - Patient Discharge Instructions Patient Printed Discharge Instructions: DI for Alcohol Abuse, How to Prevent Falls Additional Instructions: You were seen in the Emergency Department for evaluation after a fall. Your labs and imaging were unremarkable. Review the handout provided at discharge. Follow up with your primary care provider. Return to the Emergency Department if you develop fevers, chest pain, trouble breathing, worsening pain, change in sensation, worsening symptoms, or any new/ concerning symptoms. - Post Discharge Activity
--- NOTE | 2019-06-02 08:43 | EKG ---
Test Reason : Blood Pressure : / mmHG Vent. Rate : 053 BPM Atrial Rate : 053 BPM P-R Int : 162 ms QRS Dur : 094 ms QT Int : 478 ms P-R-T Axes : 062 -05 044 degrees QTc Int : 448 ms SINUS BRADYCARDIA OTHERWISE NORMAL ECG WHEN COMPARED WITH ECG OF 14-OCT-2018 01:01, NO SIGNIFICANT CHANGE WAS FOUND Confirmed by MD BRADLEY, RELL ([id number]) on 06/02/2019 8:43:08 AM Referred By: Confirmed By:RELL HUERTA MD
== END 2019-06-02 00:21 | disposition home or self-care (01) ==
LOC: JER 20:12
DX: S09.8XXA Other specified injuries of head, initial encounter (principal); M25.561 Pain in right knee; W18.39XA Other fall on same level, initial encounter; Y93.89 Activity, other specified; Y92.238 Other place in hospital as the place of occurrence of the external cause; Y99.8 Other external cause status; I10 Essential (primary) hypertension; G40.909 Epilepsy, unspecified, not intractable, without status epilepticus; F10.10 Alcohol abuse, uncomplicated; F31.9 Bipolar disorder, unspecified; F41.9 Anxiety disorder, unspecified; F90.9 Attention-deficit hyperactivity disorder, unspecified type; F11.10 Opioid abuse, uncomplicated; F14.10 Cocaine abuse, uncomplicated; F13.10 Sedative, hypnotic or anxiolytic abuse, uncomplicated
CPT/HCPCS: 36415; 70450-TC; 71045-TC-FY; 72125-TC; 80053; 84484; 85025; 93005; 93010; 99285-25

== ENCOUNTER 2020-08-22 18:15 | Inpatient (IN) | payer OTHER ==
[2020-08-22 18:52] VITALS: BMI 22.3
[2020-08-22] MEDS ORDERED: MAGNESIUM CITRATE 300 ML BOTTLE PO PRN (20:58)
[2020-08-22] MEDS ORDERED: ACETAMINOPHEN 325 MG TABLET (FP) PO PRN ×2 (20:58)
[2020-08-22] MEDS ORDERED: MAGNESIUM HYDROX 2400MG/30ML ORAL SUSPENSION 30 ML CUP PO PRN (20:58)
[2020-08-22] MEDS ORDERED: NICOTINE POLACRILEX 2 MG GUM BUC PRN (20:58)
[2020-08-22] MEDS ORDERED: MAG HYDROX/AL HYDROX/SIMETH 30 ML UNIT-DOSE CUP PO PRN (20:58)
[2020-08-22] MEDS ORDERED: MENTHOL/PHENOL 1 EACH UD MM PRN (20:58)
[2020-08-22] MEDS ORDERED: BISMUTH SUBSALICYLATE 524 MG/30 ML PO PRN (20:58)
[2020-08-22] MEDS ORDERED: IBUPROFEN 400 MG TABLET (FP) PO PRN (20:58)
[2020-08-22] MEDS ORDERED: ONDANSETRON *ODT* 4 MG TABLET SL PRN (20:58)
[2020-08-22] MEDS ORDERED: LORazepam 1 MG TABLET PO PRN (20:58)
[2020-08-23] MEDS: THIAMINE HCL 100 MG TABLET (FP) PO SCH ×2 (00:52→22:41)
[2020-08-23] MEDS: LORazepam 2 MG TABLET PO SCH ×3 (00:52→10:59)
[2020-08-23] MEDS: MELATONIN 5 MG TABLETS PO SCH ×2 (00:53→22:41)
[2020-08-23] MEDS ORDERED: diazePAM 5 MG TABLET PO SCH (05:00)
[2020-08-23] MEDS ORDERED: METHADONE HCL 40 MG DISPERSABLE TABLET ONE (09:50)
[2020-08-23] MEDS ORDERED: METHADONE HCL 5 MG TABLET ONE (09:50)
[2020-08-23] MEDS ORDERED: METHADONE HCL 10 MG TABLET PO ONE (10:00)
[2020-08-23] MEDS ORDERED: METHADONE 120 MG, METHADONE 5 MG PO ONE (10:00)
[2020-08-23 10:10] LABS: BLOOD UREA NITROGEN 19.1 mg/dL (7-18)
[2020-08-23 10:11] LABS: CALCIUM 8.4 mg/dL (8.5-10.1)
[2020-08-23 10:12] LABS: HEMATOCRIT 40.3 % (35.4-49); HEMOGLOBIN 13.6 GM/dL (11.7-16.9); MCH 32.9 pg (25.7-33.7); MCHC 33.7 g/dl (32.0-35.9); MEAN CELL VOLUME 97.6 fl (80-96); MEAN PLT VOLUME 9.9 fl (7.5-11.1); PLATELET COUNT 256 K/MM3 (134-434); RBC 4.12 M/mm3 (4.00-5.60); RDW 14.8 % (11.9-15.9); WHITE BLOOD COUNT 8.6 K/mm3 (4.0-10.0)
[2020-08-23 10:13] LABS: CREATININE 0.7 mg/dL (0.55-1.3)
[2020-08-23 10:15] LABS: BILIRUBIN,TOTAL 0.2 mg/dL (0.2-1); TOT PROT 6.3 g/dl (6.4-8.2)
[2020-08-23] MEDS: PRENATAL VITAMINS W/ FOLIC ACID TABLET (FP) PO SCH (10:56)
[2020-08-23] MEDS: TAMSULOSIN HCL 0.4 MG CAP PO SCH (10:56)
[2020-08-23] MEDS: NICOTINE 14 MG/24 HOURS TOPICAL PATCH TD SCH (10:59)
[2020-08-23] MEDS: diazePAM 5 MG TABLET PO SCH ×2 (18:10→22:42)
[2020-08-23] MEDS: METHOCARBAMOL 500 MG TABLET PO PRN (22:41)
[2020-08-24] MEDS ORDERED: METHADONE HCL 5 MG TABLET ONE (04:11)
[2020-08-24] MEDS ORDERED: METHADONE HCL 40 MG DISPERSABLE TABLET ONE (04:11)
[2020-08-24] MEDS ORDERED: LORazepam 1 MG TABLET PO SCH (05:00)
[2020-08-24] MEDS: diazePAM 5 MG TABLET PO SCH ×3 (05:21→22:10)
[2020-08-24] MEDS: METHADONE 120 MG, METHADONE 5 MG PO SCH (05:21)
[2020-08-24] MEDS ORDERED: METHADONE HCL 10 MG TABLET PO SCH (06:00)
[2020-08-24] MEDS ORDERED: LEVOTHYROXINE NA 100 MCG TABLET (FP) PO SCH (07:00)
[2020-08-24] MEDS: TAMSULOSIN HCL 0.4 MG CAP PO SCH (07:31)
[2020-08-24] MEDS: diazePAM 5 MG TABLET PO PRN ×2 (10:15→17:49)
[2020-08-24] MEDS: PRENATAL VITAMINS W/ FOLIC ACID TABLET (FP) PO SCH (10:15)
[2020-08-24] MEDS: NICOTINE 14 MG/24 HOURS TOPICAL PATCH TD SCH (10:15)
[2020-08-24] MEDS: METHOCARBAMOL 500 MG TABLET PO PRN (14:53)
[2020-08-24] MEDS: MELATONIN 5 MG TABLETS PO SCH (22:09)
[2020-08-24] MEDS: THIAMINE HCL 100 MG TABLET (FP) PO SCH (22:10)
[2020-08-25] MEDS ORDERED: LORazepam 0.5 MG TABLET PO PRN
[2020-08-25] MEDS ORDERED: METHADONE HCL 40 MG DISPERSABLE TABLET ONE (04:38)
[2020-08-25] MEDS ORDERED: METHADONE HCL 5 MG TABLET ONE (04:38)
[2020-08-25] MEDS ORDERED: LORazepam 0.5 MG TABLET PO SCH (05:00)
[2020-08-25] MEDS: METHADONE 120 MG, METHADONE 5 MG PO SCH (05:38)
[2020-08-25] MEDS: diazePAM 5 MG TABLET PO SCH ×2 (05:38→17:50)
[2020-08-25 06:07] LABS: SARS-CoV-2 NAA Not Detected (Not Detected)
[2020-08-25] MEDS: LEVOTHYROXINE NA 112 MCG TABLET (FP) PO SCH (06:41)
[2020-08-25] MEDS: TAMSULOSIN HCL 0.4 MG CAP PO SCH (07:39)
[2020-08-25] MEDS: PRENATAL VITAMINS W/ FOLIC ACID TABLET (FP) PO SCH (10:03)
[2020-08-25] MEDS: METHOCARBAMOL 500 MG TABLET PO PRN (10:04)
[2020-08-25] MEDS: NICOTINE 14 MG/24 HOURS TOPICAL PATCH TD SCH (10:04)
[2020-08-25] MEDS: diazePAM 5 MG TABLET PO PRN ×2 (10:06→22:11)
[2020-08-25 20:47] VITALS: PULSE 55
[2020-08-25] MEDS: THIAMINE HCL 100 MG TABLET (FP) PO SCH (22:08)
[2020-08-25] MEDS: MELATONIN 5 MG TABLETS PO SCH (22:08)
[2020-08-26] MEDS ORDERED: METHADONE HCL 40 MG DISPERSABLE TABLET ONE (04:32)
[2020-08-26] MEDS ORDERED: METHADONE HCL 5 MG TABLET ONE (04:32)
[2020-08-26] MEDS ORDERED: LORazepam 0.5 MG TABLET PO ONE (05:00)
[2020-08-26] MEDS: METHADONE 120 MG, METHADONE 5 MG PO SCH (05:39)
[2020-08-26] MEDS ORDERED: diazePAM 5 MG TABLET PO ONE (06:00)
[2020-08-26] MEDS: LEVOTHYROXINE NA 112 MCG TABLET (FP) PO SCH (06:36)
[2020-08-26 07:29] VITALS: BP 125/59; TEMP 96.4
== END 2020-08-26 06:25 | disposition home or self-care (01) | DRG 897 ==
LOC: YASAS 18:15 → Y6N 22:57
PROVIDERS: ADMIT Allergy & Immunology; ATTEND Allergy & Immunology
PROC: HZ2ZZZZ Detoxification Services for Substance Abuse Treatment (ICD-10-PCS; principal; 2020-08-22)
DX: F10.230 Alcohol dependence with withdrawal, uncomplicated (principal); F11.20 Opioid dependence, uncomplicated; F14.20 Cocaine dependence, uncomplicated; F17.210 Nicotine dependence, cigarettes, uncomplicated; F41.9 Anxiety disorder, unspecified; F90.9 Attention-deficit hyperactivity disorder, unspecified type; E03.9 Hypothyroidism, unspecified; E05.90 Thyrotoxicosis, unspecified without thyrotoxic crisis or storm; M48.00 Spinal stenosis, site unspecified; N40.0 Benign prostatic hyperplasia without lower urinary tract symptoms; R01.1 Cardiac murmur, unspecified; Z98.890 Other specified postprocedural states; Z56.0 Unemployment, unspecified; Z59.0 Homelessness
CPT/HCPCS: 36415; 80053; 84443; 85027; 86780; 93005; 93010; C9803; U0003; U0005